=== PATIENT | female | born 1965 | race Caucasian/White ===

== ENCOUNTER 2020-11-17 12:51 | Emergency (ER) | payer OTHER, SELFPAY ==
[2020-11-17 12:52] VITALS: BP 205/93; PULSE 70; RESP 15; TEMP 36.4; O2SAT 98; BMI 30.7
--- NOTE | 2020-11-17 13:10 | EX.ED.VIS.HA ---
ED.HPI.ZARATE History of Present Illness Chief Complaint: Headache Informant: patient Onset/Context/Timing Onset: Days Context: Sudden Timing: Continuous Quality -Headache: Positive for Similar Prior Headaches and Throbbing Current Severity: Mild Maximum Severity: Severe Worsened by: Sound and light Relieved by: Nothing Associated Symptoms/Injury Associated Symptoms: Positive for Nausea, Blurred Vision (Bilateral) and Photophobia; Negative for Fever, Vomiting, Sore Throat, Sinus Pressure, Numbness, Tingling, Preceding Aura, Visual Changes and Visual Loss Injury - ZARATE: Direct Trauma (Problems with headache for the past 8 months after trauma. Patient reports he has had 5 CAT scans since then. Most recent was in October.) Narrative Narrative: Patient is a middle-aged woman who presents with bilateral throbbing headache associated with photophobia and sonophobia. She does report nausea without vomiting. She denies neck stiffness. She denies fever, chills night sweats. She has had problems with headaches since trauma 8 months ago. She had a CAT scan at that time. She had total of 5 CAT scan with the most recent being 1 month ago. She states she has problem with balance because of issues related to her knees. She walks with a cane. She denies broad-based gait. She denies spinning sensation. She has trouble with speech or swallowing. She denies cardiac respiratory symptoms. She denies urologic symptoms. She denies any significant nasal drainage. Prior similar symptoms: Yes Recent Illness/Hospitalization: Yes [facility] Medical History Fibromyalgia History of headache Post concussion syndrome Home Medications bupropion HCl [Wellbutrin XL] 150 mg PO DAILY 11/17/20 [History Last Taken Unknown] duloxetine [Cymbalta] 20 mg PO BID 11/17/20 [History Last Taken Unknown] methadone 10 mg PO BID 11/17/20 [History Last Taken Unknown] metoprolol tartrate 25 mg PO BID 11/17/20 [History Last Taken Unknown] ondansetron [Zofran ODT] 4 mg PO Q6H PRN 11/17/20 [History Last Taken Unknown] sumatriptan succinate [Imitrex] 50 mg PO Q2H PRN 11/17/20 [History Last Taken Unknown] Allergy/AdvReac Type Severity Reaction Status Date / Time furosemide [From Lasix] Allergy NEEDS Verified 11/17/20 13:18 FOLLOW-UP hydrochlorothiazide Allergy NEEDS Verified 11/17/20 12:54 FOLLOW-UP morphine Allergy NEEDS Verified 11/17/20 12:54 FOLLOW-UP Surgical History History of total right knee replacement Social History (Updated 11/17/20 @ 13:[address] Ray Castro MD) household members: family Smoking Status: Never smoker alcohol intake: never substance use type: does not use ROS ROS ED Constitutional Constitutional ED: Denies chills, fever(s), subjective or sweats Eyes Eyes: Reports blurry vision; Denies change in vision or diplopia ENT ENT ED: Denies ear pain, rhinorrhea or sore throat Cardiovascular Cardiovascular: Denies chest pain or palpitations Respiratory/Chest Respiratory/Chest: Denies cough, dyspnea or dyspnea on exertion Gastrointestinal Gastrointestinal: Reports nausea; Denies abdominal pain, diarrhea or vomiting Genitourinary Genitourinary ED: Denies dysuria, hematuria or urinary frequency Musculoskeletal Musculoskeletal: Denies arthralgias or myalgias Integumentary Denies rash Neurologic Neurologic: Reports headache(s); Denies paresthesias or weakness Endocrine Endocrinology: Denies polydipsia or polyuria Hematologic/Lymphatic Hematologic/Lymphatic: Denies easy bruising EXAM Physical Exam Const Vital Signs: 11/17/20 12:52 Temperature 97.5 F L Temperature Source Temporal Pulse Rate 70 Respiratory Rate 15 Blood Pressure 205/93 H Blood Pressure Mean 130 Pulse Ox 98 Oxygen Delivery Method Room Air Positive well nourished General Appearance ED: NAD HEENT Reports normocephalic, TM's clear and moist mucous membranes Negative for temporal artery tenderness or vesicular rash Tympanic Membrane ED: Yes TM's clear Eyes PERRL and EOMs intact bilaterally General Eye ED: Negative for pale conjunctiva or scleral icterus Neck no lymphadenopathy, supple, no meningeal signs and no JVD Resp normal respiratory effort and clear to auscultation bilaterally Cardio regular rate, regular rhythm, S1 normal heart sound, S2 normal heart sound and no murmurs GI non-tender and non-distended Auscultation: normoactive bowel sounds Palpation: soft Back/Spine no CVA tenderness Lumbar Spine / Lower Back: Negative for lumbar spinal tenderness Extremity normal to inspection, full ROM and normal capillary refill Neuro oriented x3 and CN's II-XII intact bilaterally Sensorium / Orientation: awake, alert and other Negative clonus or Babinski sign. Coordination / Balance: [id number] test normal and Romberg test negative Speech: speech normal Gait (Neuro): normal gait Sensory Exam: No sensory level loss detected Motor Exam: strength 5/5 throughout Psych mental status grossly normal Skin Lesions: no lesions Rashes: no rashes Nails: normal MDM MDM MDM Narrative Medical decision making narrative: Patient most likely has traumatic migraines. Will treat with IV Benadryl, Toradol and Reglan. Since her neuro exam is nonfocal imaging was not obtained especially since she has had 5 CAT scans since the initial trauma. Treatment and Re-Evaluation Comments:: Patient was reassessed at 07/13/2004. She is smiling sitting upright. She reports 95+ percent improvement. Plan is to discharge to home with appropriate home-going instructions. Blood pressure upon arrival was elevated and believe this to be secondary to her pain. No work-up was undertaken since she is asymptomatic. Discharge Plan Triage Chief Complaint: Headache ED Provider: Ray Castro Dx/Rx/DC Orders Clinical Impression: Atypical migraine Instructions: ED Headache Unspecified Prescriptions: No Action methadone 10 mg Tablet 10 mg PO BID RF: 0 sumatriptan succinate [Imitrex] 50 mg Tablet 50 mg PO Q2H PRN (Reason: Headache) RF: 0 ondansetron [Zofran ODT] 4 mg Tablet,Disintegrating 4 mg PO Q6H PRN (Reason: Nausea) RF: 0 bupropion HCl [Wellbutrin XL] 150 mg Tablet Extended Release 24 Hr 150 mg PO DAILY RF: 0 metoprolol tartrate 25 mg Tablet 25 mg PO BID RF: 0 duloxetine [Cymbalta] 20 mg Capsule,Delayed Release(Dr/Ec) 20 mg PO BID RF: 0 Referrals: Care Physician,No Primary [NON-STAFF] - Doctor,Your [STAFF PHYSICIAN] - 3-5 Days Activity Restrictions/Additional Instructions: You should follow-up with your doctor to have your blood pressure reassessed in 5 to 7 days. Disposition Disposition: Home, self care
[2020-11-17] MEDS: Ketorolac 15 MG/ML Vial IV (13:29)
[2020-11-17] MEDS: Metoclopramide 10 MG/2 ML Vial IV (13:33)
[2020-11-17] MEDS: DiphenhydrAMINE 50 MG/ML Syringe 25 MG IV (13:33)
[2020-11-17 14:35] VITALS: BP 150/91; PULSE 57; RESP 16
== END 2020-11-17 14:35 | disposition home or self-care (01) ==
PROVIDERS: Emergency Provider Emergency Medicine
DX: G43.009 Migraine without aura, not intractable, without status migrainosus (principal)
CPT/HCPCS: 96374; 96375; 99283; A4216

== ENCOUNTER 2020-11-27 21:41 | Emergency (ER) | payer OTHER, SELFPAY ==
[2020-11-19 09:34] VITALS: BMI 30.7
[2020-11-27 21:43] VITALS: BP 152/93; PULSE 79; RESP 15; TEMP 36.8; O2SAT 98; BMI 31.6
[2020-11-27] MEDS: Ketorolac 15 MG/ML Vial IV (22:26)
[2020-11-27] MEDS: 0.9% Normal Saline 1,000 ML 999 ML IV (22:26)
[2020-11-27] MEDS: DiphenhydrAMINE 50 MG/ML Syringe IV (22:26)
[2020-11-27] MEDS: Metoclopramide 10 MG/2 ML Vial IV (22:26)
[2020-11-27 23:40] VITALS: BP 146/74; PULSE 64; RESP 14; O2SAT 100
--- NOTE | 2020-11-28 03:15 | EDS_ITS ---
HPI History of Present Illness Chief Complaint: Headache Narrative Narrative: Patient reports that she has a headache that began 2 days ago. It is frontal in location. It is gradually gotten worse. Is a sharp pain sent in a worsening of 10 currently. Is worsened by light and noise. She taken Imitrex and Benadryl without relief. She has nausea without vomiting. She denies any recent injury to her head. Patient reports that she has had similar headaches since February of last year when she fell and hit her head. Last episode like this was 4 days ago. She reports that she has had 3 different CTs of her head and 2 MRIs. [facility] Medical History Fibromyalgia History of headache Post concussion syndrome Home Medications bupropion HCl [Wellbutrin XL] 150 mg PO DAILY 11/17/20 [History Last Taken Unknown] duloxetine [Cymbalta] 20 mg PO BID 11/17/20 [History Last Taken Unknown] methadone 10 mg PO BID 11/17/20 [History Last Taken Unknown] metoprolol tartrate 25 mg PO BID 11/17/20 [History Last Taken Unknown] ondansetron [Zofran ODT] 4 mg PO Q6H PRN 11/17/20 [History Last Taken Unknown] sumatriptan succinate [Imitrex] 50 mg PO Q2H PRN 11/17/20 [History Last Taken Unknown] metoclopramide HCl [Reglan] 10 mg PO Q6H PRN #10 tab 11/27/20 [Rx Last Taken Unknown] Allergy/AdvReac Type Severity Reaction Status Date / Time furosemide [From Lasix] Allergy NEEDS Verified 11/27/20 21:46 FOLLOW-UP hydrochlorothiazide Allergy NEEDS Verified 11/27/20 21:46 FOLLOW-UP morphine Allergy NEEDS Verified 11/27/20 21:46 FOLLOW-UP Surgical History History of total right knee replacement Social History household members: family Smoking Status: Never smoker alcohol intake: never substance use type: does not use ROS ROS ED Constitutional Constitutional ED: Denies chills, fever(s) or sweats Eyes Eyes: Denies change in vision ENT ENT ED: Denies sore throat Cardiovascular Cardiovascular: Denies chest pain Respiratory/Chest Respiratory/Chest: Denies cough, dyspnea or dyspnea on exertion Gastrointestinal Gastrointestinal: Denies abdominal pain, diarrhea, melena, nausea or vomiting Genitourinary Genitourinary ED: Denies dysuria or urinary frequency Musculoskeletal Musculoskeletal: Denies myalgias Integumentary Denies rash Neurologic Neurologic: Reports headache(s); Denies paresthesias or weakness EXAM Physical Exam Const Vital Signs: 11/27/20 21:43 11/27/20 23:40 Temperature 98.2 F Temperature Source Temporal Pulse Rate 79 64 Respiratory Rate 15 14 Blood Pressure 152/93 H 146/74 H Blood Pressure Mean 112 Pulse Ox 98 100 Oxygen Delivery Method Room Air Positive well nourished and well developed General Appearance ED: well developed HEENT Reports normocephalic and head/scalp atraumatic Eyes PERRL Neck no lymphadenopathy, supple and no JVD General: Negative for tenderness Resp normal respiratory effort and clear to auscultation bilaterally Cardio regular rate, regular rhythm and no murmurs GI normal to inspection, nondistended, normoactive bowel sounds and non-tender GI Narrative: No guarding, rebound, or peritoneal signs. Palpation: soft Back/Spine Back/Spine Narrative: Nontender. Extremity General Extremety ED: Negative for edema or tenderness General Extremity: Negative for edema Neuro oriented x3, CN's II-XII intact bilaterally and no sensory deficits noted Sensorium / Orientation: alert Motor Exam: strength 5/5 throughout Psych mental status grossly normal Skin no rashes or lesions noted [facility] Treatment and Re-Evaluation Comments:: Emergency department course: Patient had an IV placed. She was given Toradol, Benadryl, and Reglan IV. She reports that her headache is greatly improved. No Treatment plan: Patient will be discharged prescription for Reglan to use for her headaches as needed. Follow-up the [facility] in 1 to 2 days if not improving. Return to the emergency department for any worsening symptoms. Disposition: To home in improved and stable condition. Discharge Plan Triage Chief Complaint: Headache ED Provider: Pancho Harris Dx/Rx/DC Orders Instructions: ED Headache Unspecified Prescriptions: New metoclopramide HCl [Reglan] 10 mg tablet 10 mg PO Q6H PRN (Reason: nausea and vomiting) Qty: 10 RF: 0 No Action methadone 10 mg Tablet 10 mg PO BID RF: 0 sumatriptan succinate [Imitrex] 50 mg Tablet 50 mg PO Q2H PRN (Reason: Headache) RF: 0 ondansetron [Zofran ODT] 4 mg Tablet,Disintegrating 4 mg PO Q6H PRN (Reason: Nausea) RF: 0 bupropion HCl [Wellbutrin XL] 150 mg Tablet Extended Release 24 Hr 150 mg PO DAILY RF: 0 metoprolol tartrate 25 mg Tablet 25 mg PO BID RF: 0 duloxetine [Cymbalta] 20 mg Capsule,Delayed Release(Dr/Ec) 20 mg PO BID RF: 0 Primary Care Provider: Care Physician,No Primary Referrals: Jennifer Armenta [NON-STAFF] - 1-2 Days if not improving Care Physician,No Primary [Primary Care Provider] - Disposition Disposition: Home, self care Discharge Date/Time: 11/27/20 23:40
== END 2020-11-27 23:40 | disposition home or self-care (01) ==
PROVIDERS: Emergency Provider Emergency Medicine
DX: R51.9 Headache, unspecified (principal); M79.7 Fibromyalgia
CPT/HCPCS: 96361; 96374; 96375; 99283; J7030

== ENCOUNTER 2020-12-03 12:22 | Emergency (ER) | payer OTHER, SELFPAY ==
[2020-12-03 12:23] VITALS: BP 146/76; PULSE 71; RESP 15; TEMP 36.4; O2SAT 97; BMI 32.4
--- NOTE | 2020-12-03 13:12 | EDS_ITS ---
HPI History of Present Illness Chief Complaint: Headache Narrative Narrative: 55-year-old female presenting with headache. She states she has light and sound sensitivity. This is a chronic problem with a flareup. Patient states that this started when she lived in [place] and had an injury to her head. She was seeing a neurologist in [place] at that time. Patient states that she has been lost to follow-up because her insurance lapsed. She has insurance starting next week and has an appointment with a primary care provider. She states she just wants a shot of Toradol which will work for her and she wants to go home. [facility] Medical History Atypical migraine Fibromyalgia History of headache Osteoarthritis Post concussion syndrome Home Medications bupropion HCl [Wellbutrin XL] 150 mg PO DAILY 11/17/20 [History Last Taken Unknown] methadone 10 mg PO BID 11/17/20 [History Last Taken Unknown] metoprolol tartrate 25 mg PO BID 11/17/20 [History Last Taken Unknown] sumatriptan succinate [Imitrex] 50 mg PO Q2H PRN 11/17/20 [History Last Taken Unknown] metoclopramide HCl [Reglan] 10 mg PO Q6H PRN #10 tab 11/27/20 [Rx Last Taken Unknown] duloxetine 30 mg capsule,delayed release 30 mg PO BID 12/03/20 [History Last Taken Unknown] naproxen [Naprosyn] 500 mg PO BID #30 tab 12/03/20 [Rx Last Taken Unknown] Allergy/AdvReac Type Severity Reaction Status Date / Time furosemide [From Lasix] Allergy NEEDS Verified 12/03/20 12:24 FOLLOW-UP hydrochlorothiazide Allergy NEEDS Verified 12/03/20 12:24 FOLLOW-UP morphine Allergy NEEDS Verified 12/03/20 12:24 FOLLOW-UP Surgical History History of arthroscopy of right shoulder History of breast augmentation History of total right knee replacement Social History household members: family Smoking Status: Never smoker alcohol intake: never substance use type: does not use ROS ROS ED Constitutional Constitutional ED: Denies chills, fever(s) or sweats Eyes Eyes: Denies blurry vision or change in vision ENT ENT ED: Denies ear pain, rhinorrhea or sore throat Cardiovascular Cardiovascular: Denies chest pain, palpitations or racing heartbeat Respiratory/Chest Respiratory/Chest: Denies cough, dyspnea or sputum Gastrointestinal Gastrointestinal: Denies abdominal pain, constipation, diarrhea or vomiting Genitourinary Genitourinary ED: Denies dysuria, hematuria or urinary frequency Musculoskeletal Musculoskeletal: Denies arthralgias, myalgias or neck pain Integumentary Denies abscess, Abrasions or rash Neurologic Neurologic: Reports headache(s) and other Details: Light and sound sensitivity ; Denies paresthesias or weakness Psychiatric Psychiatric: Denies anxiety, depression, suicidal ideation or suicidal thoughts Endocrine Endocrinology: Denies polydipsia or polyuria EXAM Physical Exam Const Vital Signs: 12/03/20 12:23 Temperature 97.6 F L Temperature Source Temporal Pulse Rate 71 Respiratory Rate 15 Blood Pressure 146/76 H Blood Pressure Mean 99 Pulse Ox 97 Oxygen Delivery Method Room Air General Appearance ED: Negative for pallor HEENT Reports normocephalic, head/scalp atraumatic and moist mucous membranes trauma Eyes PERRL and EOMs intact bilaterally Chest Wall inspection of chest normal and palpation of chest normal Resp normal respiratory effort and clear to auscultation bilaterally Auscultation: Negative for rales, rhonchi or wheezes Cardio regular rate and regular rhythm Narrative: Deferred Back/Spine no CVA tenderness Cervical Spine: Negative for cervical spine tenderness Extremity normal to inspection General Extremety ED: Negative for tenderness Neuro oriented x3 and CN's II-XII intact bilaterally Sensorium / Orientation: alert Motor Exam: strength 5/5 throughout Psych mental status grossly normal Attitude: No agitated Skin no rashes or lesions noted and no wounds General Skin Exam: Negative for jaundice or pallor MDM MDM MDM Narrative Medical decision making narrative: 55-year-old female presenting with headache. She states she only wants a shot of Toradol and then be discharged home. Other than photophobia and phonophobia she has no other symptoms. He has no focal neurologic deficits on exam. She denies neck pain. She has follow-up with her new primary care provider next week. Patient was given Toradol IM. She was discharged home in stable condition. Impression: 1. Headache Discharge Plan Triage Chief Complaint: Headache ED Provider: Rayray Rojo Dx/Rx/DC Orders Instructions: ED Headache Unspecified Prescriptions: New naproxen [Naprosyn] 500 mg tablet 500 mg PO BID Qty: 30 RF: 0 No Action duloxetine [Cymbalta] 30 mg capsule,delayed release(DR/EC) 30 mg PO BID RF: 0 methadone 10 mg Tablet 10 mg PO BID RF: 0 sumatriptan succinate [Imitrex] 50 mg Tablet 50 mg PO Q2H PRN (Reason: Headache) RF: 0 bupropion HCl [Wellbutrin XL] 150 mg Tablet Extended Release 24 Hr 150 mg PO DAILY RF: 0 metoprolol tartrate 25 mg Tablet 25 mg PO BID RF: 0 metoclopramide HCl [Reglan] 10 mg tablet 10 mg PO Q6H PRN (Reason: nausea and vomiting) Qty: 10 RF: 0 Primary Care Provider: Ev Vasquez Referrals: Ev Vasquez MD [Primary Care Provider] - Disposition Disposition: Home, self care
[2020-12-03] MEDS: Ketorolac 15 MG/ML Vial IM (13:32)
== END 2020-12-03 14:03 | disposition home or self-care (01) ==
PROVIDERS: Emergency Provider Student in an Organized Health Care Education/Training Program; PCP Internal Medicine
DX: R51.9 Headache, unspecified (principal); M79.7 Fibromyalgia; M19.90 Unspecified osteoarthritis, unspecified site
CPT/HCPCS: 96372; 99282

== ENCOUNTER → 2020-12-14 10:02 | Outpatient (CLI) | payer OTHER, SELFPAY ==
[2020-12-08 10:55] VITALS: BMI 32.4
[2020-12-14 12:10] LABS: Absolute Lymphocyte Count 0.98 X10^3/uL (0.83-4.51); Absolute Neutrophil Count 3.2 X10^3/uL (2.0-7.7); Basophil# 0.03 X10^3/uL; Basophil% 0.6 % (0-1); Eosinophil# 0.28 X10^3/uL; Eosinophils% 5.6 % (0-5); Hematocrit 36.9 % (37-47); Hemoglobin 11.6 g/dL (12.0-15.0); Lymphocyte # 0.98 X10^3/ul (0.83-4.51); Lymphocyte % 19.6 % (19-41); Mean Corp Hgb Conc 31.4 g/dL (32-36); Mean Corpuscular Hgb 27.3 pg (27.0-32.0); Mean Corpuscular Volume 86.8 fL (81-99); Mean Platelet Vol. 10.3 fl (6.2-12.0); Monocyte# 0.49 X10^3/uL; Monocyte% 9.8 % (0-10); NRBC Flagged by Analyzer 0 % (0-5); Neutrophil % 64.2 % (47-70); Platelet Count 309 K/mm3 (150-450); RBC Distribution Width SD 40.9 fl (35.1-43.9); Red Blood Count 4.25 M/mm3 (4.2-5.4)
[2020-12-14 12:21] LABS: Vitamin D,25 Hydroxy 22.2 ng/mL
[2020-12-14 12:30] LABS: ALB/GLOB Ratio 1.1 RATIO (0.9-2.4); AST(SGOT) 24 U/L (15-37); Alanine Aminotransfer ALT/SGPT 29 U/L (13-56); Albumin, Serum 3.9 g/dL (3.2-5.0); Alkaline Phosphatase 66 U/L (45-117); Anion Gap 7 (5-15); BUN 13 mg/dL (7-18); BUN/Creat Ratio 18.8 RATIO (10-20); Calcium,Total 9.1 mg/dL (8.5-10.1); Chloride 102 mmol/L (98-107); Cholesterol 234 mg/dL (200); Creatinine, Serum 0.69 mg/dL (0.55-1.02); EST Glomerular Filtration Rate 93 mL/min (>60); Est Glom Filt Rate - Afr Amer 112 mL/min (>60); Globulin 3.5 g/dL (2.2-4.2); Glucose 96 mg/dL (74-106); High Density Lipoprotein 62 mg/dL; Potassium 4.1 mmol/L (3.5-5.1); Protein, Total 7.4 g/dL (6.4-8.2); Sodium Level 140 mmol/L (136-145); Thyroid Stim Hormone (TSH) 1.22 uIU/mL (0.358-3.74); Triglycerides 149 mg/dL; Very Low Density Lipoprotein 30 mg/dL (5-40)
== END ==
PROVIDERS: PCP Internal Medicine; Visit Provider Internal Medicine
DX: E55.9 Vitamin D deficiency, unspecified (principal); G43.009 Migraine without aura, not intractable, without status migrainosus; M19.90 Unspecified osteoarthritis, unspecified site; Z13.220 Encounter for screening for lipoid disorders; Z98.82 Breast implant status; Z98.890 Other specified postprocedural states
CPT/HCPCS: 36415; 80053; 80061; 82306; 84443; 85025

== ENCOUNTER → 2021-01-21 14:30 | Outpatient (CLI) | payer OTHER, SELFPAY ==
[2020-12-08 10:55] VITALS: BMI 32.4
--- NOTE | 2021-01-21 14:34 | RAD_ITS ---
INDICATION: LUMBAR PAIN EXAMINATION/TECHNIQUE: X-RAY - XR Spine Lumbar Min 4 Views COMPARISON: None. FINDINGS: VERTEBRAE: Preserved vertebral body height. No fracture. 6 mm anterolisthesis L4 on L5. 2 mm anterolisthesis L3 on L4. Preservation of the normal lumbar lordosis. Moderate multilevel facet arthropathy. DISCS: Moderate multilevel degenerative disease and spondylosis. INCLUDED ABDOMEN: Vascular calcifications. Moderate amount retained stool in the colon. RAD/L/S Spine Min 4 Views IMPRESSION: Grade 1 anterolisthesis L4 on L5 and L3 on L4. Moderate multilevel degenerative disc disease and spondylosis. Electronically Signed: Angel Hernadez MD at 23:51 EDT Tel , Service support ,
== END ==
PROVIDERS: PCP Internal Medicine; Referring Provider Nurse Practitioner Family; Visit Provider Nurse Practitioner Family
DX: M54.5 Low back pain (principal)
CPT/HCPCS: 72110

== ENCOUNTER 2021-04-21 05:43 | Day surgery (SDC) | payer OTHER, SELFPAY ==
[2020-12-08 10:55] VITALS: BMI 32.4
[2021-04-21] VITALS (7 sets, daily range): BP systolic 104–146; BP diastolic 73–99; PULSE 58–73; RESP 16–18; TEMP 36–36.2; O2SAT 98–100; BMI 32.7
[2021-04-21] MEDS: Lactated Ringers 1,000 ML 100 ML IV (06:17)
--- NOTE | 2021-04-21 06:43 | HP.PCM_ITS ---
HPI - General HPI Narrative ROSALINDA MARROQUIN, is a 56 F who presents for screening colonoscopy. Sounds like about 5 years ago patient attempted a colonoscopy as well but had poor prep thus was unable to be completed. Patient denies any chronic abdominal pain nausea or vomiting or reflux. Patient bowel movements daily denies any blood. Patient denies any family history of colon cancer. [facility] Medical History (Updated 04/21/21 @ 06:[address] Nola Curry MD) Ambulates with cane Anemia Anxiety Arthritis Atypical migraine Back pain Chronic back pain CPAP (continuous positive airway pressure) dependence Dementia Depression Fibromyalgia History of headache History of irregular heartbeat History of steroid therapy Hypertension Injury of back Injury of head and neck Migraine headache Osteoarthritis Post concussion syndrome Post-menopausal Sleep apnea Traumatic brain injury Wears dentures Wears glasses Home Medications bupropion HCl 150 mg 24 hr tablet, extended release 150 mg PO DAILY #90 tab 12/08/20 [Rx Last Taken Unknown] duloxetine 30 mg capsule,delayed release 30 mg PO BID #180 cap 12/08/20 [Rx Last Taken Unknown] metoprolol tartrate 25 mg tablet 25 mg PO BID #180 tab 12/08/20 [Rx Last Taken 04/21/21 05:40] sumatriptan succinate 50 mg tablet 50 mg PO Q2H PRN #30 tab 12/08/20 [Rx Last Taken Unknown] celecoxib 200 mg capsule 200 mg PO DAILY 03/31/21 [History Last Taken Unknown] methadone 5 mg tablet 5 mg PO BID tab 03/31/21 [History Last Taken Unknown] magnesium 200 mg PO DAILY 04/19/21 [History Last Taken Unknown] [id number] [Centrum Silver] 1 tab PO DAILY 04/19/21 [History Last Taken Unknown] omega-3 fatty acids [Fish Oil] 1,000 mg PO DAILY 04/19/21 [History Last Taken Unknown] potassium 99 mg PO DAILY 04/19/21 [History Last Taken Unknown] vitamin [id number] acid 1 tab PO DAILY 04/19/21 [History Last Taken Unknown] Allergy/AdvReac Type Severity Reaction Status Date / Time furosemide [From Lasix] Allergy Other Verified 04/21/21 06:01 hydrochlorothiazide Allergy Other Verified 04/21/21 06:01 morphine Allergy Other Verified 04/21/21 06:01 topiramate [From Topamax] Allergy Other Verified 04/21/21 06:01 Surgical History History of arthroscopy of right shoulder History of breast augmentation History of total right knee replacement Social History household members: family Smoking Status: Never smoker alcohol intake: never substance use type: does not use Past Medical/Surgical History Planned Operation Planned Operative Procedure/s: COLONOSCOPY Previous Hospitalizations/Surgeries HX Hospitalizations: No Any Problems With Anesthesia: No You/Your Family Experience Fever (Hyperthermia) With Anes: No Cholinesterase deficiency: No Cardiovascular Hx Hypertension: Yes (CONTROLLED ON MED) Respiratory Hx Sleep Apnea: Yes CPAP: Yes (NOT USING) BIPAP: No Hx Respiratory Tract Infection/Cold (presently): No Result (for STOP score): Positive Smoking Status: Never smoker Neurological Does patient have nerve stimulator: No Reproduction : No Miscellaneous Recent Exposure to Contagious Disease: No Allergies furosemide [From Lasix] Allergy (Verified 04/21/21 06:01) Other HEART STOPPED hydrochlorothiazide Allergy (Verified 04/21/21 06:01) Other HEART STOPPED morphine Allergy (Verified 04/21/21 06:01) Other SEVERE ZARATE topiramate [From Topamax] Allergy (Verified 04/21/21 06:01) Other CAUSED PETI MAL SEIZURES Discharge Is Pt Admitted From a Correction, or a [facility]: No After D/C, Where Do you Plan to Go: Return Home Vital Signs Vital Signs Vital Signs: 04/21/21 06:04 04/21/21 06:05 Temperature 97.2 F L Temperature Source Temporal Pulse Rate 65 Respiratory Rate 18 Respiratory Pattern Normal Blood Pressure 146/79 H Blood Pressure Mean 101 Blood Pressure Source Monitor Blood Pressure Position Semi-Fowlers Blood Pressure Location Right Arm Pulse Ox 98 Oxygen Delivery Method Room Air Weight Weight: 190 lb 11.198 oz Body Mass Index (BMI) 32.7 Physical Exam Const alert, oriented x3 and no apparent distress HEENT normocephalic and head/scalp atraumatic Resp normal respiratory effort Cardio regular rate GI soft to palpation and non-tender; Negative for non-distended Palpation: Negative for guarding Extremity no clubbing, cyanosis or edema Neuro CN's II-XII intact bilaterally Psych mental status grossly normal Assessment & Plan Assessment/Plan (1) Screening for colon cancer: Procedure Criteria Type of Procedure Procedure Type: Elective Elective Risks - COVID COVID Risk Discussion: The surgeon/proceduralist and patient have discussed in detail the risk of exposure to and/or potential harm posed by the COVID-19 virus with having a surgery/procedure at this time versus the risk of delaying the surgery/procedure. It is not possible to know either the risk of delaying the surgery or procedure or chance of getting an infection with perfect accuracy, but a joint decision was made between the patient and the surgeon/proceduralist to proceed at this time with the scheduled surgery/procedure as indicated on the consent form. Surgery Risks - Colonoscopy Risks Include but are not Limited To: Risks include but are not limited to: Bleeding, perforation requiring further surgery, inability to complete colonoscopy requiring barium enema. Patient had no further questions this time.
--- NOTE | 2021-04-21 07:00 | COLBX_PTH ---
PATIENT: ROSALINDA MARROQUIN LOC: EN U#:[id number] AGE/SX: 56/F ROOM: RE04/21/[address]: Dr. Nola Curry MD : [id number] BED: DIS: 04/21/2021 SPEC #: [id number] RECD: 04/21/21 11:57 STATUS: RAMSES REQ #: [id number] ARRON: 04/21/21 07:[address]: Nola Curry DEPT: SURGICAL PATHOLOGY RECD BY: Matt Wood ENTERED: 04/21/21 13:30 SP TYPE: COLON BX OTHR DR: Dr. Ev Vasquez MD Tissues: COLON BIOPSY Procedures: Surgery Specimen Level IV HEADER OPERATION: Colonoscopy ? open access (MAC) PRE-OP DIAGNOSIS: Screening for colon cancer TISSUE SUBMITTED: Hepatic flexure polyp biopsy MICROSCOPIC DIAGNOSIS Hepatic flexure polyp, biopsy: Tubular adenoma. SJ:lucas 04/22/2021 MICROSCOPIC DESCRIPTION Slides are reviewed. GROSS DESCRIPTION Received in fixative is one container labeled with the patient's name and designated hepatic flexure polyp. The specimen consists of two irregular fragments of light pereira soft tissue that in aggregate measure 0.4 x 0.2 x 0.1 cm. The specimen is totally submitted in one cassette. / SJ:lucas 04/21/21 TC:1 CPT: 57243
--- NOTE | 2021-04-21 07:36 | OP.COLON_ITS ---
Patient Name: Sharon Vargas Procedure Date: 04/21/2021 6:50 AM Date of : 1965 Age: 56 Procedure: Colonoscopy Indications: Screening for colorectal malignant neoplasm Providers: Nola Curry MD Referring MD: Nola Curry MD Medicines: Monitored Anesthesia Care Patient Profile: This is a 56 year old female. Last Colonoscopy: none. The patient's first colonoscopy is today--previous was incomplete due to poor prep. Complications: No immediate complications. Procedure: Pre-Anesthesia Assessment: - Prior to the procedure, a History and Physical was performed, and patient medications and allergies were reviewed. The patient's tolerance of previous anesthesia was also reviewed. The risks and benefits of the procedure and the sedation options and risks were discussed with the patient. All questions were answered, and informed consent was obtained. Prior Anticoagulants: The patient has taken no previous anticoagulant or antiplatelet agents. ASA Grade Assessment: Per anesthesia. After reviewing the risks and benefits, the patient was deemed in satisfactory condition to undergo the procedure. After I obtained informed consent, the scope was passed under direct vision. Throughout the procedure, the patient's blood pressure, pulse, and oxygen saturations were monitored continuously. The pediatric colonoscope was introduced through the anus and advanced to the cecum, identified by the appendiceal orifice, ileocecal valve and palpation. The colonoscopy was performed without difficulty. The patient tolerated the procedure well. The quality of the bowel preparation was adequate to identify polyps. Scope In: 7:03:14 AM Scope Withdrawal Time 0 hours 12 minutes 37 seconds Scope Out: 7:29:56 AM Total Procedure Duration Time 0 hours 26 minutes 42 seconds Findings: The perianal and digital rectal examinations were normal. A less than 5 mm polyp was found in the hepatic flexure. The polyp was sessile. The polyp was removed with a cold biopsy forceps. Resection and retrieval were complete. The exam was otherwise without abnormality on direct and retroflexion views. Impression: - One less than 5 mm polyp at the hepatic flexure, removed with a cold biopsy forceps. Resected and retrieved. - The examination was otherwise normal on direct and retroflexion views. Recommendation: - Discharge patient to home. - Resume previous diet. - Continue present medications. - Await pathology results. - Repeat colonoscopy in 5 years for surveillance based on pathology results. Procedure Code(s): --- Professional --- 40685, PT, Colonoscopy, flexible; with biopsy, single or multiple Diagnosis Code(s): --- Professional --- Z12.11, Encounter for screening for malignant neoplasm of colon D12.3, Benign neoplasm of transverse colon (hepatic flexure or splenic flexure) CPT copyright 2017 [employer]. All rights reserved. The codes documented in this report are preliminary and upon braiding machine tender review may be revised to meet current compliance requirements. MD Nola Gibson MD 04/21/2021 7:36:26 AM This report has been signed electronically. Number of Addenda: 0 Note Initiated On: 04/21/2021 6:50 AM
--- NOTE | 2021-04-21 07:37 | OP.CCLET_ITS ---
04/21/2021 Ev Vasquez [facility] [address] [place] [address] Re : Colonoscopy procedure for Sharon Vargas Dear Dr. Vasquez This procedure was performed on Wednesday, April 21, 2021. My impressions and recommendations are as follows: Impressions : - One less than 5 mm polyp at the hepatic flexure, removed with a cold biopsy forceps. Resected and retrieved. - The examination was otherwise normal on direct and retroflexion views. Recommendations : - Discharge patient to home. - Resume previous diet. - Continue present medications. - Await pathology results. - Repeat colonoscopy in 5 years for surveillance based on pathology results. My findings are described in the full procedure note, which is enclosed. If I can be of further assistance, please feel free to contact me at Doctor phone number(s): , Work: . Sincerely, MD Nola Gibson MD 04/21/2021 7:36:26 AM This report has been signed electronically.
== END 2021-04-21 08:39 | disposition home or self-care (01) ==
LOC: EN 05:43 → AC 05:43
PROVIDERS: PCP Internal Medicine; Referring Provider Surgery; Visit Provider Surgery
PROC: 0DJD8ZZ Inspection of Lower Intestinal Tract, Via Natural or Artificial Opening Endoscopic (ICD-10-PCS; CPT 45378; principal; 2021-04-21 06:55)
DX: Z12.11 Encounter for screening for malignant neoplasm of colon (principal); D12.3 Benign neoplasm of transverse colon; F41.9 Anxiety disorder, unspecified; M19.90 Unspecified osteoarthritis, unspecified site; F03.90 Unspecified dementia, unspecified severity, without behavioral disturbance, psychotic disturbance, mood disturbance, and anxiety; F32.A Depression, unspecified; M79.7 Fibromyalgia; I10 Essential (primary) hypertension; G47.30 Sleep apnea, unspecified; Z79.899 Other long term (current) drug therapy
CPT/HCPCS: 45380; 87426; 88305; C9803; J7120; J2405

== ENCOUNTER → 2021-05-19 15:34 | Outpatient (CLI) | payer OTHER, SELFPAY ==
[2021-05-19 17:58] LABS: Absolute Lymphocyte Count 1.08 X10^3/uL (0.83-4.51); Absolute Neutrophil Count 3.5 X10^3/uL (2.0-7.7); Basophil# 0.02 X10^3/uL; Basophil% 0.4 % (0-1); Eosinophil# 0.11 X10^3/uL; Eosinophils% 2.2 % (0-5); Hematocrit 36.8 % (37-47); Lymphocyte # 1.08 X10^3/ul (0.83-4.51); Lymphocyte % 21.3 % (19-41); Mean Corp Hgb Conc 32.6 g/dL (32-36); Mean Platelet Vol. 10.5 fl (6.2-12.0); Monocyte# 0.39 X10^3/uL; Monocyte% 7.7 % (0-10); NRBC Flagged by Analyzer 0 % (0-5); Neutrophil # 3.46 X10^3/uL (2.7-7.7); Neutrophil % 68.2 % (47-70); Platelet Count 248 K/mm3 (150-450); RBC Distribution Width CV 13.3 % (11.6-14.6); RBC Distribution Width SD 41.1 fl (35.1-43.9); Red Blood Count 4.28 M/mm3 (4.2-5.4); White Blood Count 5.1 K/mm3 (4.4-11.0)
[2021-05-19 18:16] LABS: Anion Gap 5 (5-15); BUN 16 mg/dL (7-18); BUN/Creat Ratio 23.8 RATIO (10-20); Calcium,Total 9.4 mg/dL (8.5-10.1); Chloride 107 mmol/L (98-107); Creatinine, Serum 0.67 mg/dL (0.55-1.02); EST Glomerular Filtration Rate 96 mL/min (>60); Est Glom Filt Rate - Afr Amer 116 mL/min (>60); Glucose 109 mg/dL (74-106); Potassium 3.9 mmol/L (3.5-5.1); Sodium Level 139 mmol/L (136-145)
== END ==
PROVIDERS: PCP Internal Medicine; Referring Provider Internal Medicine; Visit Provider Internal Medicine
DX: Z01.818 Encounter for other preprocedural examination (principal); M19.90 Unspecified osteoarthritis, unspecified site
CPT/HCPCS: 36415; 80048; 85025

== ENCOUNTER → 2021-05-20 13:48 | Outpatient (CLI) | payer OTHER, SELFPAY ==
--- NOTE | 2021-05-20 13:55 | CT_ITS ---
STUDY: CT SCAN OF LOWER EXTREMITY LEFT REASON FOR EXAM: Female, 56 years old. Left knee, templating for TKA.[facility] protocol. RADIATION DOSAGE (If Supplied By Facility): CTDIvol = ( 18.76 ) mGy, DLP = ( 1237.75 ) mGycm. Individualized dose optimization techniques were used for this CT.? TECHNIQUE: Multiple axial tomographic images of the left hip joint, left knee joint and ankle joint were obtained. Coronal and sagittal reconstruction was obtained as well. COMPARISON: None. FINDINGS: Imaging of the left hip joint was obtained. No significant abnormality is seen. Imaging of the left knee joint was obtained. Marked degree of joint space narrowing with degenerative spur formation along the medial compartment of the knee joint. Moderate degree of joint space narrowing with degenerative spur formation of the patella femoral joint. There is a well-corticated 7 mm x 7 mm bony density in the posterior aspect of the knee joint suggestive of a possible loose body. Imaging of the ankle joint was obtained. No abnormality is seen. CT/Extremity Lower without Contra IMPRESSION: Degenerative changes of the knee joint as described with a small loose body within the joint space. Electronically Signed: Hi Jang MD at 15:18 EST , Service support ,
== END ==
PROVIDERS: PCP Internal Medicine; Referring Provider Orthopaedic Surgery; Visit Provider Orthopaedic Surgery
DX: M17.12 Unilateral primary osteoarthritis, left knee (principal)
CPT/HCPCS: 73700

== ENCOUNTER 2021-06-08 09:57 | Inpatient (IN) | payer OTHER, SELFPAY ==
--- NOTE | 2021-05-20 13:54 | EKG12_ITS ---
Test Reason : PREOP Blood Pressure : / mmHG Vent. Rate : 056 BPM Atrial Rate : 056 BPM P-R Int : 184 ms QRS Dur : 094 ms QT Int : 436 ms P-R-T Axes : 055 024 043 degrees QTc Int : 420 ms Sinus bradycardia Otherwise normal ECG Confirmed by PER DYKES, ROZINA ([id number]), magazine editor LILIANA GRAFF ([id number]) on 05/21/2021 6:52:41 AM Referred By: Edwar Huffman Confirmed By:ROZINA ALBARADO MD
[2021-06-01 11:37] LABS: Prothrombin Time (Protime)PT. 12.5 SECONDS (11.7-14.9)
[2021-06-01 11:38] LABS: Partial Thromboplast Time 33.8 Seconds (24.1-36.2)
[2021-06-01 11:43] LABS: Magnesium 2.2 mg/dL (1.6-2.6)
[2021-06-02 13:43] LABS: Fructosamine 246 umol/L (0-285)
[2021-06-08] VITALS (17 sets, daily range): BP systolic 90–148; BP diastolic 58–103; PULSE 57–92; RESP 16–18; TEMP 36.1–36.8; O2SAT 94–100; BMI 33.7
--- NOTE | 2021-06-08 | KNEE_PTH ---
PATIENT: ROSALINDA MARROQUIN LOC: MS3 U#:[id number] AGE/SX: 56/F ROOM: [facility] RE06/08/[address]: Dr. Edwar Huffman DO : 1965 BED: 1 DIS: 06/09/2021 SPEC #: [id number] RECD: 06/08/21 12:38 STATUS: RAMSES BRAN #: [id number] ARRON: 06/08/21 00:[address]: Edwar Huffman DEPT: SURGICAL PATHOLOGY RECD BY: Yahir Godwin ENTERED: 06/08/21 12:38 SP TYPE: TOTAL KNEE OTHR DR: Dr. Ev Vasquez MD Tissues: Knee, NOS Procedures: Decalcification bone/plaque Surgery Specimen Level IV HEADER OPERATION: ERAS, total knee replacement robotic arm assist PRE-OP DIAGNOSIS: Left knee pain TISSUE SUBMITTED: Left knee bone and soft tissue MICROSCOPIC DIAGNOSIS Bone and soft tissue, left knee, total knee replacement/resection: Pieces of bone with degenerative osteoarthritic changes. Fibroadipose tissue, fibroconnective tissue and reactive synovial tissue. ZOLTAN:lucas 06/10/2021 MICROSCOPIC DESCRIPTION Slides are reviewed. GROSS DESCRIPTION Received is one container designated bone and soft tissue left knee. The specimen consists of multiple fragments of pereira-yellow bone measuring in aggregate 9 x 10 x 3.5 cm. Also in the specimen container are multiple fragments of yellow-white soft tissue and cartilaginous tissue measuring in aggregate 5 x 1 x 1 cm. A number of bony fragments contain articular surfaces consistent with tibial plateau and femoral condyle and displaying prominent osteophyte formation, eburnation and bone erosion. Organic Chemistry Professor sections are submitted in two cassettes as follows: 1 - soft tissue, 2 - bone after decalcification. / ZOLTAN:lucas 06/08/2021 :5 CPT: 45303, 79688
[2021-06-08] MEDS: Acetaminophen 500 MG Tablet 1000 MG PO ×3 (06:08→22:18)
[2021-06-08] MEDS: Celecoxib 200 MG Capsule 400 MG PO (06:08)
[2021-06-08] MEDS: Gabapentin 600 MG Tablet PO (06:09)
[2021-06-08] MEDS: Scopolamine 1mg/72hr Patch 1 PATCH TD (06:09)
[2021-06-08] MEDS: Lactated Ringers 1,000 ML 100 ML IV (06:17)
[2021-06-08 06:35] LABS: Bedside Glucose 105 mg/dL (70-110)
[2021-06-08] MEDS: Lactated Ringers 1,000 ML 125 ML IV ×2 (07:00→13:51)
--- NOTE | 2021-06-08 07:29 | HP.PCM_ITS ---
History and Physical Date of Admission: 06/08/21 Date of Service: 05/03/21 MR#:[id number]:[id number]: ROSALINDA MARROQUINGISSELLE #:[id number]:[id number] Provider:Dr. Edwar Huffman, DOAge/Sex: 56/F [facility]:Signed Intake Vital Signs 04/13/21 11:24 05/03/21 13:43 Height 5 ft 5 in 5 ft 5 in Weight: 199 lb BMI 33.1 Intake Visit Reasons: Left Knee Allergies furosemide [From Lasix] Allergy (Verified 04/21/21 06:01) Other hydrochlorothiazide Allergy (Verified 04/21/21 06:01) Other morphine Allergy (Verified 04/21/21 06:01) Other topiramate [From Topamax] Allergy (Verified 04/21/21 06:01) Other Medications bupropion HCl 150 mg 24 hr tablet, extended release 150 mg PO DAILY #90 tab 12/08/20 [Rx Confirmed 05/03/21] duloxetine 30 mg capsule,delayed release 30 mg PO BID #180 cap 12/08/20 [Rx Confirmed 05/03/21] metoprolol tartrate 25 mg tablet 25 mg PO BID #180 tab 12/08/20 [Rx Confirmed ] celecoxib 200 mg capsule 200 mg PO DAILY 03/31/21 [History Confirmed 05/03/21] methadone 5 mg tablet 5 mg PO BID tab 03/31/21 [History Confirmed 05/03/21] magnesium 200 mg PO DAILY 04/19/21 [History Confirmed 05/03/21] tpeeztffgmvy-zlflshcr-vqnlel [Centrum Silver] 1 tab PO DAILY 04/19/21 [History Confirmed 05/03/21] omega-3 fatty acids [Fish Oil] 1,000 mg PO DAILY 04/19/21 [History Confirmed 05/03/21] potassium 99 mg PO DAILY 04/19/21 [History Confirmed 05/03/21] vitamin M82-ptppd acid 1 tab PO DAILY 04/19/21 [History Confirmed 05/03/21] sumatriptan succinate 50 mg tablet 50 mg PO Q2H PRN #30 tab 04/22/21 [Rx Confirmed 05/03/21] PFSH Medical History (Updated 05/03/21 @ 13:42 by Roberta Guido) Ambulates with cane Anemia Anxiety Arthritis Atypical migraine Back pain Chronic back pain CPAP (continuous positive airway pressure) dependence Dementia Depression Fibromyalgia History of headache History of irregular heartbeat History of steroid therapy Hypertension Injury of back Injury of head and neck Migraine headache Osteoarthritis Post concussion syndrome Post-menopausal Sleep apnea Traumatic brain injury Wears dentures Wears glasses Surgical History History of arthroscopy of right shoulder History of breast augmentation History of total right knee replacement Social History household members: family Smoking Status: Never smoker alcohol intake: never substance use type: does not use HPI Left Knee Details: Parts of this documentation were recorded by a scribe, this documentation accurately reflects the service provided and the decisions made by me, Dr. Edwar Huffman, DO 05/03/21 9523. ROSALINDA MARROQUIN is a 56 year old F NEW patient here today for left knee pain. She states that she has had this left knee pain for about 4-5 years and the pain is progressively getting worse. She states that she was getting steroid injections in the knee every 3 months and they have not been very effective. She states that she has weakness of the left knee. She has difficulty getting into the shower. She states that she has posterior knee pain and this pain does radiate into her upper calf. She does also have some left sided low back pain and pain into the left leg as well but she is aware that she has lumbar DDD. Denies numbness, tingling or other associated symptoms. Denies any surgery of the left knee. She does have painful popping of the knee at times. She does feel that her left knee will give out on her. Her last steroid injection of the left knee was 09/[address] Marinelli in [place]. She states that injection was only effective for about 1 month. She has good extension and flexion at this time. She is using a cane to ambulate d/t the left knee pain. Right TKA in 2017 and denies any complications after the right TKA. She states that surgery was scheduled for the left knee to be replaced but this got canceled and She has been getting the steroid injections since. She states that she was on a pain pump after her right replacement and then thinks she took Percocet with the Methadone. She has been seeing Dr. Kamara for about 4 months. She has been taking Methadone for her back pain for over 5 years. She just had codal epidural steroid injections into her back with Dr. Kamara on 04/02/2021. She also has ablation therapy scheduled with Dr. Kamara. She states that she has seen several spinal surgeons and states they said she didnt require surgery. Is not a smoker and denies use of recreational drugs. Denies any hx of infections or ulcers in the toes. She has full set of dentures. Is not a diabetic. ROS Musc Denies numbness, Denies radiating pain into limb and Denies tingling Neuro No numbness and No tingling Ortho Exam General General: Yes no acute distress Neurologic: Yes alert and Yes oriented x3 Psychologic: Yes reasonable and appropriate Right Knee Patella Translation: 1 Left Knee Skin/Wound: No ecchymosis, No erythema and No swelling Homans Sign: No Knee ROM: No ROM-Extension -20 to 0 (lacking 15) and No ROM-Flexion 0-140 (125) Examination: Yes med jt line tenderness, No Lat jt line tenderness and No TTP Pes Anserine Stability: NML: Anterior Drawer, NML: Posterior Drawer, NML: Valgus 30 and NML: Varus 30 Apprehension with Lateral Translation: No Patella Translation: 1 Patella Grind: Yes KNEE: no joint effusion no hip pain with hip ROM sensation intact throughout the left lower leg Supplemental Info 05/03/2021 x-ray left knee advanced medial compartment arthrosis moderate patellofemoral spurring Coding Level of Care Code Off vis,new,level 3 Diagnoses Left knee pain M25.562 Primary osteoarthritis of left knee M17.12 Assessment and Plan Assessment and Plan (1) Left knee pain: Status: Acute Orders: Orders: Knee 4 or More Views Today Plan - Dr. Edwar Huffman, DO: Obtained X-rays of patient's left knee. Personally reviewed x-rays. There is no obvious fracture, dislocation, or lucency noted. Patient educated that she does have advanced arthritis of the left knee. Educated that her treatment options are do nothing or bracing or steroid injection or left TKA. Risks, benefits and alternatives of surgery reviewed including but not limited to bleeding, infection, nerve, artery and/or tissue damage, fracture, VTE, mechanical feel of the knee, continued pain, stiffness and expected post-operative course. Patient wishes to proceed with left TKA. 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 She did require rehabilitation after her last total knee however she is much more supported now at home with minimal stairs she states that she lives with her son and has a good support system at home. She will need to stop the Ibuprofen and Celebrex 7 days prior to surgery. She should stop the Turmeric as well. We will need medical clearance from her PCP Dr. Vasquez. Educated on the IOVERA procedure at this time and she wishes to proceed with this if it is approved by insurance. We discussed postoperative expectations and need for physical therapy, can take up to 2 years post op to fully recover. The most important part after surgery is PT and gaining the full extension and good ROM. She will be on a blood thinner for 2 weeks post op, and she will need to wear SEINA hose post operatively. Follow up for IOVERA treatment or sooner if pain, swelling, numbness or associated symptoms, or concerns develop. All questions answered. Patient in agreement of plan. (2) Primary osteoarthritis of left knee: Status: Acute 05/03/21 1413<Electronically signed by Edwar Huffman DO>Date Edwar Huffman DO I have re-examined the patient. There are no clinical changes since date of exam
[2021-06-08] MEDS: Cefazolin 2 GM in 0.9% Normal Saline 100 ML IV (07:42)
[2021-06-08] MEDS: dexAMETHasone 10 MG/ML Vial IV (07:50)
[2021-06-08] MEDS: Epinephrine (1 mg/ml) 1 MG/ML VIAL (09:20)
[2021-06-08] MEDS: Bupivacaine 0.5% PF 10 ML VIAL (09:20)
[2021-06-08] MEDS: Betamethasone/Betamethasone 30 MG/5 ML Vial (09:20)
[2021-06-08] MEDS: 0.9% Normal Saline (Pres. free 10 ML Vial (09:20)
--- NOTE | 2021-06-08 10:02 | PCM.OPRPT ---
Report of Operation Date of Procedure: 06/08/21 Description of Surgical Findings:: Preoperative diagnosis: Left knee DJD Postoperative diagnosis: Same Procedure: Left total knee arthroplasty CT guided Robotic Assisted Implant: Ramakrishna triathlon press fit, femoral component size 4, tibial baseplate size 5, asymmetric patella size 35, polyethylene X3 size 9 CS Anesthesia: Spinal with adductor canal block Tourniquet time: 14 minutes at 300 mmHg Complications: None Condition: Stable to PACU Estimated blood loss: 300 cc Indication for procedure: This is a 56-year-old female with long standing degenerative joint disease of the knee who has failed conservative treatment and wished to proceed with elective total knee arthroplasty. Risk benefits and alternatives were reviewed including; risk of bleeding, infection, nerve artery and tissue damage, continued pain, postoperative stiffness, venous thromboembolism, need for postoperative rehabilitation, mechanical feel to the knee, and expected postoperative course. The pre- operative CT and templating was performed with component sizing. Procedure: The patient was met in the preoperative holding area. The operative extremity was identified by both patient and physician and was marked. Patient was met by anesthesia. An adductor canal block was placed by anesthesia postoperatively the patient was brought back to the operating room on a wheeled cart and transferred to the operating table in the supine position. Anesthesia was started. A well-padded tourniquet was placed on the operative extremity. The patient was prepped and draped in the usual sterile fashion. A timeout was called to ensure the proper patient procedure and extremity were being contemplated. An esmarch was used to exsanguinate the extremity. The tourniquet was inflated. A 10 blade scalpel was used to make a midline incision down through the skin and subcutaneous tissue. Skin retractors placed. Bovie and aquamantis were used to perform meticulous hemostasis. full-thickness flaps were elevated medial and lateral along the joint capsule. A deep blade scalpel was used to perform a medial parapatellar arthrotomy. The knee was brought to full extension. A bovie was used to release the soft tissues off the most proximal aspect of the medial tibial plateau, a three-quarter inch curved osteotome was also used in this process. The infrapatellar fat pad was excised. The suprapatellar fat pad was excised partially anteriorolateraly and portion the anterioromedial pad was elevated from the femur. At this point our intra-articular femoral array was placed at a 45 degree angle proximal and posterior to the medial epicondyle. femoral checkpoint was placed at this time. Our tibial array was placed greater than 1 hands breath below the incision at a 20 degree angle stab incisions were made with a 15 blade scaple and pins were placed and attached to the tibial array , tibial checkpoint was placed in the proximal tibial metaphysis. Tourniquet was let down. At this point registration field were taken throughout the knee . Once the knee was registered we then tensioned the medial and lateral ligaments in extension and 90 degrees of flexion. We then used these numbers to adjust our components within parameters to balance the knee in both flexion and extension once this was done on our monitor we then proceeded with using the robotic arm to make our tibial plateau cut, anterior and posterior chamfer and distal femur cuts. we removed the cut fragments with the use of a bovie and lucero, we did use a lamina death clearance coordinator to insure we visualized and removed all posterior osteophytes and at this time also used the aquamantis on the posterior joint capsule. we then trialed and achieved the desired plan with a well-balanced knee. we used the green prob to agatha the corresponding tibial rotaion based on our CT tmeplate. Lug holes were drilled in the femur the tibia preparation was completed with the appropriate sized base plate pinned based on previous rotation agatha. An approprate sized fin punch was used on the tibia and 4 corner drill was used for the press fit component and the patella was prepared by first using a caliper to ensure sufficient bone stock and a patellar reamer to remove the desired amount of bone. lug holes drilled for an asymmetric poly. We then brought the knee through range of motion with excellent patellar tracking. We thoroughly irrigated the knee. Trial components were removed a posterior capsular injection was perfomed with our standard cocktail. In addition the aqua Mantis was also used to aid in hemostasis. Betadine rinse was allowed to sit and washed out completely. Components were press-fit into place. Aricept rinse was then used followed by several moree liters of irrigation after it was allowed to sit. The joint capsule was closed with #1 Ethibond raydvk-iz-zzcaj's followed by Vicryl in the subcutaneous tissues with alfa in the skin. Arrays and checkpoints were removed prior to closure all counts were correct stab incisions were closed with a staple standard dressing in the form of Mepilex AG for the main incision and a small meplix over the pin holes. Thigh-high SENIA hose applied over top of dressing. Patient tolerated the procedure well and was directed to PACU in stable condition . There were no intraoperative complications.
--- NOTE | 2021-06-08 10:33 | RAD_ITS ---
STUDY: X-RAY - LEFT KNEE REASON FOR EXAM: Postoperative evaluation of total left knee arthroplasty. TECHNIQUE: 2 view(s) of the knee. COMPARISON: Radiographs 05/03/2021. FINDINGS: There is a left total knee arthroplasty without evidence of complication. There is postoperative gas in the soft tissues and overlying skin alfa. RAD/Knee 1 or 2 Views IMPRESSION: Uncomplicated left total knee arthroplasty. Electronically Signed: Anurag Vazquez MD at 11:47 EST Tel , Service support ,
[2021-06-08] MEDS: oxyCODONE 5 MG Tablet PO (12:15)
[2021-06-08] MEDS: Cefazolin 1 GM/50 ML BAG IV ×2 (12:16→20:51)
--- NOTE | 2021-06-08 12:59 | DCINST_ITS ---
Discharge Instructions Dressing / Incision Additional Dressing/Incision Instructions:: Ice and elevate one week while not ambulating. Ambulation is encouraged. Weightbearing as tolerated. Use assistive devise for stability. Encourage FULL knee extension and flexion 1 time EVERY time you get up and down and MULTIPLE times per day. No showering 72 hours after surgery. Begin showering postop day #3. Remove the dressing prior to shower and gently wash with warm water and antibacterial soap then pat dry and place abdominal pad (or plain gauze) and SENIA hose over top. This is to be done daily. Do not submerge for 3 weeks. If not showering daily after the initial 72 hours then you must clean incision and change dressing daily. Do not allow animals near the incision area. Keep clean. Follow anticoagulation recommendations as prescribed. Do not take any NSAIDs while on blood thinner. Do not take any additional narcotic pain medication other than what was prescribed on your surgery day without discussing with physician. Narcotic medication can be addictive. Do not drink alcohol while taking narcotics. Star t physical therapy. If you are not currently scheduled for physical therapy or you are unsure of appointment time please call office [facility] to arrange. Call Dr. Huffman with any concerns. Follow Up Care Please Follow Up With: Edwar Huffman DO When: 2 weeks Test Results: Test results from this visit will be discussed in further detail at your follow-up appointment, if applicable. Discharge Plan Admission Admit Date/Time: 06/08/21 09:57 Attending Provider: Edwar Huffman Primary Care Provider: Ev Vasquez Discharge Orders/Prescriptions Prescriptions: New acetaminophen 500 mg Tablet 1,000 mg PO 4X/DAY PRN PRN (Reason: pain) Qty: 100 RF: 0 oxycodone 5 mg Tablet 5 - 10 mg PO Q4H PRN PRN (Reason: Pain Score 4-10) 7 Days Qty: 60 RF: 0 Eliquis 2.5 mg Tablet 2.5 mg PO BID Qty: 28 RF: 0 Continued duloxetine [Cymbalta] 30 mg capsule,delayed release(DR/EC) 30 mg PO BID Qty: 180 RF: 1 bupropion HCl [Wellbutrin XL] 150 mg tablet extended release 24 hr 150 mg PO DAILY Qty: 90 RF: 1 metoprolol tartrate 25 mg tablet 25 mg PO BID Qty: 180 RF: 1 celecoxib [Celebrex] 200 mg capsule 200 mg PO DAILY RF: 0 methadone 5 mg tablet 5 mg PO TID RF: 0 potassium 99 mg Tablet 99 mg PO DAILY RF: 0 magnesium 200 mg Tablet 200 mg PO DAILY RF: 0 havqjmjbmgwq-zzzbudvo-sbtzke Tablet 1 tab PO DAILY RF: 0 vitamin V50-cdyei acid 1-0.8 mg Tablet 1 tab PO DAILY RF: 0 valacyclovir 1 gram tablet 1,000 mg PO Q12H PRN (Reason: Cold Sores) RF: 0 sumatriptan succinate [Imitrex] 50 mg tablet 50 mg PO Q2H PRN (Reason: Headache) Qty: 30 RF: 0 (DME) Handicap Placard See Rx Instructions .Route .MEDSUPPLY Qty: 1 RF: 0 Discontinued Fish Oil Capsule 1,000 mg PO DAILY RF: 0 Referrals / Follow Up: Ev Vasquez MD [Primary Care Provider] -
[2021-06-08] MEDS: buPROPion (XL) 150 MG TABLET.XL PO (13:50)
[2021-06-08] MEDS: Multivitamins,Ther W-Minerals Tablet 1 TABLET PO (13:50)
--- NOTE | 2021-06-08 14:59 | SUR.PHASEII ---
PATIENT C/O LEFT KNEE PAIN 01/16, NEURO EXAM WNL, MEDS HAVE NOT BEEN EFFECTIVE. NOTIFIED DR HUSAIN WHO ORDERED ONE TIME DOSE IV DILAUDID.
[2021-06-08] MEDS: HYDROmorphone 0.5 MG/0.5 ML SYRINGE IV ×2 (15:26→22:18)
--- NOTE | 2021-06-08 16:26 | PCS.PANDOC ---
PANDEMIC DOCUMENTATION INITIATED: Date: 02/22/2021 Time: 190
[2021-06-08] MEDS: oxyCODONE 5 MG Tablet 15 MG PO (19:02)
[2021-06-08] MEDS: Senna/Docusate Sodium 1 Tablet 2 TABLET PO (22:15)
[2021-06-08] MEDS: DULoxetine Hcl 30 MG Capsule PO (22:15)
[2021-06-08] MEDS: Metoprolol Tartrate 25 MG Tablet PO (22:15)
[2021-06-08] MEDS: 0.9% NaCl Peripheral Flush Adult/Peds IV (22:18)
[2021-06-09] MEDS: oxyCODONE 5 MG Tablet 15 MG PO ×3 (00:06→11:35)
[2021-06-09] MEDS: HYDROmorphone 0.5 MG/0.5 ML SYRINGE IV (03:38)
[2021-06-09] MEDS: 0.9% NaCl Peripheral Flush Adult/Peds IV (03:39)
[2021-06-09] MEDS: Cefazolin 1 GM/50 ML BAG IV (03:43)
[2021-06-09 04:00] VITALS: BP 122/68; PULSE 77; RESP 16; TEMP 35.7; O2SAT 98
[2021-06-09 05:55] LABS: Hematocrit 25.7 % (37-47); Hemoglobin 8.4 g/dL (12.0-15.0); Mean Corp Hgb Conc 32.7 g/dL (32-36); Mean Corpuscular Hgb 28.9 pg (27.0-32.0); Mean Corpuscular Volume 88.3 fL (81-99); Mean Platelet Vol. 10.5 fl (6.2-12.0); Platelet Count 186 K/mm3 (150-450); RBC Distribution Width CV 13.2 % (11.6-14.6); RBC Distribution Width SD 42.7 fl (35.1-43.9); Red Blood Count 2.91 M/mm3 (4.2-5.4); White Blood Count 9.4 K/mm3 (4.4-11.0)
[2021-06-09] MEDS: Celecoxib 200 MG Capsule PO (06:04)
[2021-06-09] MEDS: Acetaminophen 500 MG Tablet 1000 MG PO ×2 (06:08→13:41)
[2021-06-09 06:12] LABS: Anion Gap 6 (5-15); BUN 14 mg/dL (7-18); BUN/Creat Ratio 19.5 RATIO (10-20); Calcium,Total 8.5 mg/dL (8.5-10.1); Chloride 103 mmol/L (98-107); Creatinine, Serum 0.72 mg/dL (0.55-1.02); EST Glomerular Filtration Rate 89 mL/min (>60); Est Glom Filt Rate - Afr Amer 107 mL/min (>60); Estimated Creatinine Clearance 73.55 ml/min; Glucose 190 mg/dL (74-106); Potassium 3.9 mmol/L (3.5-5.1); Sodium Level 138 mmol/L (136-145)
[2021-06-09 07:34] VITALS: PULSE 74
[2021-06-09] MEDS: Metoprolol Tartrate 25 MG Tablet PO (07:34)
[2021-06-09] MEDS: Multivitamins,Ther W-Minerals Tablet 1 TABLET PO (07:34)
[2021-06-09] MEDS: APIXABAN 2.5 MG TABLET PO (07:34)
[2021-06-09] MEDS: buPROPion (XL) 150 MG TABLET.XL PO (07:35)
[2021-06-09] MEDS: Senna/Docusate Sodium 1 Tablet 2 TABLET PO (07:35)
[2021-06-09] MEDS: Magnesium Chloride 64 MG Delay Rel.Tablet 128 MG PO (07:35)
[2021-06-09] MEDS: DULoxetine Hcl 30 MG Capsule PO (07:35)
[2021-06-09 08:00] VITALS: BP 112/52; PULSE 74; RESP 16; TEMP 36.6; O2SAT 98
[2021-06-09 08:20] VITALS: O2SAT 98
--- NOTE | 2021-06-09 09:31 | CASEMGMT ---
TC to [facility] Retail pharmacy, pt cost for eiliquis is $40. Pharmacist will apply eliquis card for zero cost.
--- NOTE | 2021-06-09 09:52 | CASEMGMT ---
ILIR WOLFE Assessment: Face to Face with pt for initial transition planning/care coordination assessment. ILIR WOLFE introduced self and role at [facility], pt voices understanding and consents to assessment. Pt is A/O x4 and answers all questions appropriately at this time. Pt sitting up in chair in no distress. Care providers, pharmacy, and demographics verified/updated. Admitting Dx: L Total Knee with SHANNEN PCP:Pedro Specialists: Sharon [employer] CLERK for , pain mgmt; [place], ortho Preferred Pharmacy: [facility] Retail Insurance: [facility] [employer] Prescription Benefit: yes LW/HPOA: Pt states she has a LW/DPOA. Her DPOA is her son Jairo Vargas. She is aware that it is not on file at [facility] and she may bring in to be scanned into the chart. LNOK: Jairo Vargas, son Living Arrangements: Pt lives with son and dil in a two story house with 2 steps to enter. Pt states son is going to build a rail at the steps. Pt only uses main level of the home. Pt states her dil washes her hair for her as she cannot d/t shoulder pain but she is able to bathe the rest of her body and dress herself. Pt denies concerns at home. Transportation: Pt son transports her to medical appts. Pt denies concerns with transportation. DME/HHC/SNF: Pt has 2 w/c, 5 canes and a 4ww. Pt has had HHC and SNF in [place]. Pt states she has her therapy set up at [facility] for tomorrow at 9am. She will use the hospital van for transportation and this is all set up. Pt states no concerns with going home at time of dc. Pt states no further concerns/needs. CM to follow. Advised pt to ask CM if any further question/concerns/needs arise, voices understanding. Pt Goal: Home with outpt therapy Plan: Home with outpt therapy already set up.
[2021-06-09 11:43] VITALS: BP 122/60; PULSE 66; RESP 16; TEMP 36.9; O2SAT 98
[2021-06-09 12:06] VITALS: O2SAT 98
--- NOTE | 2021-06-09 12:22 | DS.PCM_ITS ---
Providers Date of Admission: 06/08/21 Primary Care Physician: Dr. Ev Vasquez MD Reason For Visit: LT TOTAL KNEE W SHANNEN Diagnosis Discharge Diagnosis (1) S/P total knee arthroplasty: Status: Acute Code(s): Z96.659 - Presence of unspecified artificial knee joint (2) Other acute postprocedural pain: Status: Acute Code(s): G89.18 - Other acute postprocedural pain Medications at Discharge Home Medications bupropion HCl 150 mg 24 hr tablet, extended release 150 mg PO DAILY #90 tab 12/08/20 duloxetine 30 mg capsule,delayed release 30 mg PO BID #180 cap 12/08/20 metoprolol tartrate 25 mg tablet 25 mg PO BID #180 tab 12/08/20 celecoxib 200 mg capsule 200 mg PO DAILY 03/31/21 methadone 5 mg tablet 5 mg PO TID tab 03/31/21 magnesium 200 mg PO DAILY 04/19/21 cmmjtkgbpzon-umhmjjqx-mjoqzk 1 tab PO DAILY 04/19/21 potassium 99 mg PO DAILY 04/19/21 vitamin E82-yhbqn acid 1 tab PO DAILY 04/19/21 sumatriptan succinate 50 mg tablet 50 mg PO Q2H PRN #30 tab 04/22/21 valacyclovir 1,000 mg PO Q12H PRN 05/25/21 Handicap Placard #1 ea 06/02/21 acetaminophen 1,000 mg PO 4X/DAY PRN PRN #100 tab 06/08/21 apixaban [Eliquis] 2.5 mg PO BID #28 tab 06/08/21 oxycodone 5 - 10 mg PO Q4H PRN PRN 7 Days #60 tab 06/08/21 Hospital Course Operations total knee replacement Summary of Care Provided Hospital Course: Patient was seen in our office for osteoarthritis of the knee having failed conservative treatments therefore electing to proceed with left total knee arthroplasty. Prior to the procedure we did discuss anatomy, physiology, as well as pathophysiology of osteoarthritis. We discussed risks and possible benefits of the surgery including complication risks intraoperatively. After discussion patient again wanted to proceed with elective left total knee arthroplasty. Patient underwent successful total knee arthroplasty on Monday, May. Patient had no intraoperative complications and no evident postop issues. She was transferred to [facility]. Patient initially had a little difficulties controlling her pain at the same time today she is awake and alert and has no signs of distress. She does state there is mild pains at the same time she is smiling, carrying conversation, laughing and again has no signs of discomfort. Patient has ambulated already once today and is actually going to be doing more ambulation/physical therapy. She has done stairs and walking without major issues. She states that she feels she is doing great and is ready to go home for continued care. Physical Exam Const alert, oriented x3 and no apparent distress General Appearance: cooperative and comfortable; Negative for in distress Exam Limitations: no limitations Extremity Left Lower Extremity: knee joint inspection (Occlusive dressing remains in place and is completely dry without any seeping or noted blood. She has some minor bruising anteriorly (over Iovera treatment lines) and a little laterally at the same time is very mild.), palpation (Compartments are soft throughout the extrem ity. Minor tenderness around the anterior knee.), ROM (She does have a little bit of flexion contracture. Evident decreased range of motion postoperatively.), neurovascular exam (Normal sensation to light touch throughout the extremity. She has intact motor function of the ankle/foot/toes.), other and special tests (Negative Homans) Weight / BMI Weight Weight: 197 lb Body Mass Index (BMI) 33.7 ABG / Lab / Microbiology Data Result Diagrams: 06/09/21 05:00 06/09/21 05:00 Laboratory: Laboratory Results - last 24 hr 06/09/21 05:00: WBC 9.4, RBC 2.91 L, Hgb 8.4 L, Hct 25.7 L, MCV 88.3, MCH 28.9, MCHC 32.7, RDW Std Deviation 42.7, RDW Coeff of Jose 13.2, Plt Count 186, MPV 10.5 06/09/21 05:00: Sodium 138, Potassium 3.9, Chloride 103, Carbon Dioxide 29.0, Anion Gap 6, BUN 14, Creatinine 0.72, Estim Creat Clear Calc 73.55, Est GFR (MDRD) Af Amer 107, Est GFR (MDRD) Non-Af 89, BUN/Creatinine Ratio 19.5, Glucose 190 H, Calcium 8.5 Microbiology: Microbiology 06/01/21 10:44 Swab (Method) Nasal Screen MRSA/MSSA - Final D/C Instructions Discharge Diet: No restrictions Discharge Activity: May Shower (72 hours post op) and Use Walker Ice area for (Minutes): 20 Weight Bearing Status: Weight bearing as tolerated Keep extremity elevated above heart level: Operative Extremity (while at rest) Call your doctor if your incision/area has: Increased Pain/ Swelling Call your doctor if you observe: Fever of 101 or Higher, Numbness or Tingling, Shortness of breath and Chest pain Change Dressing in: 3 days (prior to shower on day 3 and then daily) Cleanse incision/area with: Soap & Water Additional Dressing/Incision Instructions: Ice and elevate one week while not ambulating. Perform ankle pumps while in bed or at rest. Ambulation is encouraged with wightbearing as tolerated using appropriate assistive devise for stability. Encourage FULL knee extension and flexion 1 time EVERY time you get up and down and MULTIPLE times per day. No showering 72 hours after surgery. Begin showering postop day #3. Remove the dressing prior to shower and gently wash with warm water and antibacterial soap then pat dry and place abdominal pad (or plain gauze) and SENIA hose over top. This is to be done daily. Do not submerge for 3 weeks. If not showering daily after the initial 72 hours then you must clean incision and change dressing daily. Do not allow animals near the incision area. Keep clean. Follow anticoagulation recommendations as pres cribed. Do not take any NSAIDs while on blood thinner. Do not take any additional narcotic pain medication other than what was prescribed on your surgery day without discussing with physician. Narcotic medication can be addictive. Do not drink alcohol while taking narcotics. Start physical therap y. If you are not currently scheduled for physical therapy or you are unsure of appointment time please call office [facility] to arrange. Call Dr. Huffman with any concerns. Please Follow Up With: Hero Walsh PA When: 2 weeks Meaningful Use Info Meaningful Use Diagnoses (Choose all that apply): None applicable Discharge Plan Admission Admit Date/Time: 06/08/21 09:57 Attending Provider: Edwar Huffman Primary Care Provider: Ev Vasquez Discharge Orders/Prescriptions Prescriptions: New acetaminophen 500 mg Tablet 1,000 mg PO 4X/DAY PRN PRN (Reason: pain) Qty: 100 RF: 0 oxycodone 5 mg Tablet 5 - 10 mg PO Q4H PRN PRN (Reason: Pain Score 4-10) 7 Days Qty: 60 RF: 0 Eliquis 2.5 mg Tablet 2.5 mg PO BID Qty: 28 RF: 0 Continued duloxetine [Cymbalta] 30 mg capsule,delayed release(DR/EC) 30 mg PO BID Qty: 180 RF: 1 bupropion HCl [Wellbutrin XL] 150 mg tablet extended release 24 hr 150 mg PO DAILY Qty: 90 RF: 1 metoprolol tartrate 25 mg tablet 25 mg PO BID Qty: 180 RF: 1 celecoxib [Celebrex] 200 mg capsule 200 mg PO DAILY RF: 0 methadone 5 mg tablet 5 mg PO TID RF: 0 potassium 99 mg Tablet 99 mg PO DAILY RF: 0 magnesium 200 mg Tablet 200 mg PO DAILY RF: 0 zkkmiwwskaok-tgikpmut-skvoxx Tablet 1 tab PO DAILY RF: 0 vitamin R20-ofsmq acid 1-0.8 mg Tablet 1 tab PO DAILY RF: 0 valacyclovir 1 gram tablet 1,000 mg PO Q12H PRN (Reason: Cold Sores) RF: 0 sumatriptan succinate [Imitrex] 50 mg tablet 50 mg PO Q2H PRN (Reason: Headache) Qty: 30 RF: 0 (DME) Handicap Placard See Rx Instructions .Route .MEDSUPPLY Qty: 1 RF: 0 Discontinued Fish Oil Capsule 1,000 mg PO DAILY RF: 0 Referrals / Follow Up: Ev Vasquez MD [Primary Care Provider] - Disposition Disposition (needs filled in before D/C Order can be placed): Home, Self Care
== END 2021-06-09 14:15 | disposition home or self-care (01) | DRG 470 ==
LOC: SDC 10:38 → MS3 06-09 09:06
PROVIDERS: Admitting Provider Orthopaedic Surgery; PCP Internal Medicine; Referring Provider Orthopaedic Surgery; Visit Provider Orthopaedic Surgery
PROC: 0SRD0JZ Replacement of Left Knee Joint with Synthetic Substitute, Open Approach (ICD-10-PCS; CPT 27447; principal; 2021-06-08 07:00)
DX: M17.12 Unilateral primary osteoarthritis, left knee (principal); F03.90 Unspecified dementia, unspecified severity, without behavioral disturbance, psychotic disturbance, mood disturbance, and anxiety; I10 Essential (primary) hypertension; F41.9 Anxiety disorder, unspecified; F32.A Depression, unspecified; M79.7 Fibromyalgia; G43.909 Migraine, unspecified, not intractable, without status migrainosus; Z79.899 Other long term (current) drug therapy
CPT/HCPCS: 36415; 73560; 80048; 82962; 82985; 83735; 85027; 85610; 85730; 87081; 87635; 88305; 88311; 93005; 97110; 97116; 97162; 97166; 97530; 97535; 99251; C1776; C9803; J7120; U0005; A4216; G0463; J0702; J2405; J3490; U0003

== ENCOUNTER 2021-07-14 14:00 | Outpatient (RCR) | payer OTHER, SELFPAY ==
--- NOTE | 2021-06-10 10:26 | HP.PTEVAL ---
Patient's Visit Information ROSALINDA MARROQUIN is a 56 year old F referred to Physical Therapy by Dr. Edwar Huffman DO with a diagnosis of Left TKR 06/08. Date of Evaluation: 06/10/21 Physical Therapist: Radha Toure DPT - Visit Plan Frequency: 3x /Week Duration: 4 Weeks Plan: TKR 06/08/21- Focus on LE ROM, strength, flex and muscular endurance with functional mobility - Subjective Left TKR by Dr. Shah 06/08/2021. Stayed overnight in the hospital and went home yesterday. Patient does not drive- has help from family with bathing and cooking. Prior to surgery she was only able to walk 10 feet due to pain in the knee and back. She had a right TKR ([place]) 5 years ago. Lives in a three story home but only goes to the basement but not very often- but she can go outside and walk around to avoid stairs. She has 2-4 steps to enter/exit with rails. She has a lot of family help- she is very depending on them to help with ADL's- lives with family. All on one level once she is inside. Normally pretty sedentary. Worst: 7-8/10 Agg: movement. Eases: ice packs and rubbing it. Best: 5/10. Exercises given by the hospital- report compliance. Most of the pain is lateral and posterior- started having medial pain today. Describes the pain as sharp and stabbing. Sleep: hard to get comfortable and disturbed. Work: does not work. Always uses an AD- cane inside house- w/c or walker in community. PMHx/Meds: no change since she was in the hospital. - Objective Posture: FH, RS- can correct but does not maintain. Gait: antalgic- decreased stance on the left LE with rollerator- decreased extension in knee. HR/TR: able with UE A SLS: weight shift but unable to SLS. Stairs: asc./desc non recip with bilateral HR. ROM: Knee: Flexion: 95 degrees Extn: -10 degrees. Strength: Core: fair minus, Hip: SLR: unable without max A, quad set visible- Knee: 12.1 Extn: 2.3. Ankle: 5/5. WOMAC: 21.8. Study: [facility] - Balance/Special Test Scores WOMAC Total Score: 75 WOMAC Percentatge: 21.8800 - Goals Goal 1:: Patient will be I with HEP and progression Goal Time Frame: 4-6 Weeks Goal 2:: Patient will ambulate >300 feet with a normalized gait pattern and LRD Goal Time Frame: 4-6 Weeks Goal 3:: Patient will demo 0-120 degrees of ROM Goal Time Frame: 4-6 Weeks Goal 4:: Patient will asc/desc 8 stairs recip with 1 HR and LRD Goal Time Frame: 4-6 Weeks Goal 5:: Patient will report 80% improvement with functional mobility - Rehabilitation Potential Physical Therapy Diagnosis: Patient presents with hypomobility- she has decreased ROM, strength, flex and muscular endurance s/p left TKR leading to abnormal gait and inability to perform I ADL's. Rehabilitation Potential: Fair - Anticipated Interventions Patient/Client Instruction: Educate patient on: Benefits of Fitness Program Therapeutic Exercise to Include: Strength training, Endurance training, Balance training, Coordination, Agility training, Body mechanics, Postural training, Flexibilty training, Gait and locomotor training, Neuromotor development, Passive ROM, Active ROM, Dynamic Lumbar Stabilization For the Purpose of:: To improve muscle performance and motor function Functional Training to Include: ADL Training, Gait training TENS: Yes Cryotherapy (ice pack, ice massage): Yes Thermo therapy (hot pack): Yes Ultrasound (thermal/non thermal): No Thank you for the opportunity to evaluate your patient. For Medicare and Medicare HMO plans, please review the plan of care and approve it. It will need to be FAXED BACK to us at [phone] for Medicare purposes. For Medicare only, by signing this I certify the plan of care. Please let me know if there are questions or concerns regarding this plan of care. Physician Signature: Date:
--- NOTE | 2021-07-14 14:41 | HP.PTEVAL ---
Patient's Visit Information ROSALINDA MARROQUIN is a 56 year old F referred to Physical Therapy by Dr. Edwar Huffman DO with a diagnosis of Left TKR 06/08. Date of Evaluation: 06/10/21 Physical Therapist: Radha Toure DPT - Visit Plan Frequency: 3x /Week Duration: 4 Weeks Plan: Discharge to [facility]. TKR 06/08/21- Focus on LE ROM, strength, flex and muscular endurance with functional mobility - Subjective Left TKR by Dr. Shah 06/08/2021. Stayed overnight in the hospital and went home yesterday. Patient does not drive- has help from family with bathing and cooking. Prior to surgery she was only able to walk 10 feet due to pain in the knee and back. She had a right TKR ([place]) 5 years ago. Lives in a three story home but only goes to the basement but not very often- but she can go outside and walk around to avoid stairs. She has 2-4 steps to enter/exit with rails. She has a lot of family help- she is very depending on them to help with ADL's- lives with family. All on one level once she is inside. Normally pretty sedentary. Worst: 7-8/10 Agg: movement. Eases: ice packs and rubbing it. Best: 5/10. Exercises given by the hospital- report compliance. Most of the pain is lateral and posterior- started having medial pain today. Describes the pain as sharp and stabbing. Sleep: hard to get comfortable and disturbed. Work: does not work. Always uses an AD- cane inside house- w/c or walker in community. PMHx/Meds: no change since she was in the hospital. - Pain Left Knee Pain Intensity (Out of 10): 7 Comment: no pain meds - Objective Posture: FH, RS- can correct but does not maintain. Gait: antalgic- decreased stance on the left LE with rollerator- decreased extension in knee. HR/TR: able with UE A SLS: weight shift but unable to SLS. Stairs: asc./desc non recip with bilateral HR. ROM: Knee: Flexion: 95 degrees Extn: -10 degrees. Strength: Core: fair minus, Hip: SLR: unable without max A, quad set visible- Knee: 12.1 Extn: 2.3. Ankle: 5/5. WOMAC: 21.8. Study: [facility] - Balance/Special Test Scores Lower Extremity Functional Score: 41 TUG Test Time Seconds: 12.2 WOMAC Total Score: 20 WOMAC Percentatge: 79.1700 - Goals Goal 1:: Patient will be I with HEP and progression Goal Time Frame: 4-6 Weeks Goal 2:: Patient will ambulate >300 feet with a normalized gait pattern and LRD Goal Time Frame: 4-6 Weeks Goal 3:: Patient will demo 0-120 degrees of ROM Goal Time Frame: 4-6 Weeks Goal 4:: Patient will asc/desc 8 stairs recip with 1 HR and LRD Goal Time Frame: 4-6 Weeks Goal 5:: Patient will report 80% improvement with functional mobility - Rehabilitation Potential Physical Therapy Diagnosis: Patient presents with hypomobility- she has decreased ROM, strength, flex and muscular endurance s/p left TKR leading to abnormal gait and inability to perform I ADL's. Rehabilitation Potential: Fair - Anticipated Interventions Patient/Client Instruction: Educate patient on: Benefits of Fitness Program Therapeutic Exercise to Include: Strength training, Endurance training, Balance training, Coordination, Agility training, Body mechanics, Postural training, Flexibilty training, Gait and locomotor training, Neuromotor development, Passive ROM, Active ROM, Dynamic Lumbar Stabilization For the Purpose of:: To improve muscle performance and motor function Functional Training to Include: ADL Training, Gait training TENS: Yes Cryotherapy (ice pack, ice massage): Yes Thermo therapy (hot pack): Yes Ultrasound (thermal/non thermal): No Thank you for the opportunity to evaluate your patient. For Medicare and Medicare HMO plans, please review the plan of care and approve it. It will need to be FAXED BACK to us at [phone] for Medicare purposes. For Medicare only, by signing this I certify the plan of care. Please let me know if there are questions or concerns regarding this plan of care. Physician Signature: Date:
--- NOTE | 2021-07-14 14:41 | HP.PTDCSUM ---
It has been my pleasure to treat ROSALINDA MARROQUIN referred by Dr. Edwar Huffman DO, with the diagnosis of Left TKR 06/08 for a total of 11 visit(s). Discharge Date: Please see the following information for a summary of their discharge status. Subjective: Patient reports that her knee is a lot better. She has a mild pain in the posterior knee and feels its due to healing. She has been putting the CBD oil on and she feels that its helping. She plans to buy some CBD oil for her back. She is able to walk her dogs again. Left Knee Pain Intensity (Out of 10): 7 % Improvement: 92 Objective/Function: Posture: FH, RS- can correct but does not maintain. Gait: slightly antalgic- decreased extension. HR/TR: able with UE A SLS: 10 sec. Stairs: asc./desc recip with 1 HR. ROM: Knee: Flexion: 120 degrees Extn: -10 degrees. Strength: Core: fair minus, Hip: 4+/5 Knee: Flexion: 24 Extn: 36. Ankle: 5/5. WOMAC: 21.8. Goal 1:: Patient will be I with HEP and progression Goal Progress: Goal Met Goal 2:: Patient will ambulate >300 feet with a normalized gait pattern and LRD Goal Progress: Progressing Goal 3:: Patient will demo 0-120 degrees of ROM Goal Progress: Progressing Goal 4:: Patient will asc/desc 8 stairs recip with 1 HR and LRD Goal Progress: Goal Met Goal 5:: Patient will report 80% improvement with functional mobility Goal Progress: Goal Met Plan: Discharge to I HEP. TKR 06/08/21- Focus on LE ROM, strength, flex and muscular endurance with functional mobility If there are questions or concerns regarding this patient's physical therapy, please feel free to call me at [phone]. Thank you for the referral of this patient. Sincerely, Radha Toure, DPT Balance/Gait/Functional tests - Balance/Special Test Scores Lower Extremity Functional Score: 41 TUG Test Time Seconds: 12.2 Tug Test: <20 sec.=mostly independent WOMAC Total Score: 20 WOMAC Percentage: 79.1700
== END 2021-07-14 19:00 | disposition home or self-care (01) ==
LOC: PT 14:00
PROVIDERS: PCP Internal Medicine; Referring Provider Orthopaedic Surgery; Visit Provider Orthopaedic Surgery
DX: Z47.1 Aftercare following joint replacement surgery (principal); Z96.652 Presence of left artificial knee joint
CPT/HCPCS: 97110; 97162; 97164

== ENCOUNTER 2021-09-23 14:43 | Outpatient (CLI) | payer OTHER, SELFPAY ==
--- NOTE | 2021-09-23 14:45 | BI_ITS ---
MAMMOGRAPHY - BILATERAL SCREENING 3-D TOMOSYNTHESIS REASON FOR EXAM: Female, 56 years old. Breast cancer screeningh PERTINENT HISTORY: No significant family history. TECHNIQUE: 2-D mammograms and 3-D Tomosynthesis of the breast (s) were performed. CAD was performed. COMPARISON: None. FINDINGS: The breast composition is heterogeneously dense that can obscure small breast masses. Scattered benign calcifications are seen. No dense spiculated masses or suspicious microcalcifications are identified. No architectural distortion is identified. There is no skin thickening or retraction. Bilateral retroglandular silicone implants. There is irregular areas of increased density surrounding the implants worrisome for bilateral extracapsular rupture. BI/SCRN MAMM (CAD)W/GREG BILAT IMPRESSION: No mammographic signs of malignancy. Suspect bilateral implant rupture. Routine yearly mammograms recommended. ASSESSMENT CATEGORY: BIRADS Category 2: Benign. A letter regarding these results will be sent to the patient by the facility within 30 days. FOLLOW UP RECOMMENDATION: Yearly follow up mammogram recommended. (A) Approximately 10% of breast cancers are not detected by mammography. A normal mammogram should not delay biopsy of a clinically suspicious abnormality. Electronically Signed: Micky Gentile MD at 16:10 EDT ,
== END 2021-09-23 23:59 | disposition home or self-care (01) ==
LOC: OPBI 14:45
PROVIDERS: PCP Internal Medicine; Visit Provider Internal Medicine
DX: Z12.31 Encounter for screening mammogram for malignant neoplasm of breast (principal); Z98.82 Breast implant status
CPT/HCPCS: 77063; 77067

== ENCOUNTER 2021-10-27 14:30 | Outpatient (RCR) | payer OTHER, SELFPAY ==
--- NOTE | 2021-09-15 12:29 | HP.PTEVAL_ITS ---
Patient's Visit Information ROSALINDA MARROQUIN is a 56 year old F referred to Physical Therapy by Dr. Beau Arndt MD with a diagnosis of LUMBAR SPONYLOSIS, DDD AND RADICULOPATHY. FIBROMYALGIA.. Date of Evaluation: 09/15/21 Physical Therapist: Kami Bedolla PT, Cert MDT - Visit Plan Frequency: 2-3x /Week Duration: 4-6 Weeks Plan: EVAL ONLY APPROVED. CHECK APPROVAL AND DOCUMENT VISIT NUMBER APPROVED AND TIME FRAME. POSTURE CORRECTION/STRENGTHENING, INSTRUCTION IN APPROPRIATE BODY MECHANICS AND ACTIVITY MODIFICATIONS. DLS STARTING WITH A NEUTRAL SPINE PROGRESSING ROM TOLERATED. MARIA INES LE ROM, STRETCHING AND STRENGTHENING. HEP INSTRUCTION. - Subjective Work/Leisure: UNEMPLOYEED. 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 OTHER: CURRENTLY LIVES WITH SON. . Disability: YES - SINCE 2019 DUE TO HEAD INJURY (TBI). Present symptoms: LOW BACK PAIN. PATIENT REPORTS HER BACK PAIN IS DIFFERENT FROM HER FIBROMYALGIA PAIN AND SHE HAS PAIN ALL OVER FROM FIBROMYALGIA. Present since: CHRONIC. Pain Scale: WORST 9/10, LEAST 4/10. Currently: /10. Commenced as a result of: NO APPARENT REASON. Symptoms at onset: LOW BACK PAIN. Worse: WALKING, BEING UP RIGHT IN GENERAL, ANY TIME I MOVE, STANDING. Better: LYING DOWN, SITTING, BEING OFF FEET. Disturbed sleep: YES. Previous history/Previous treatment: NO BACK SURGERY. MASSAGE, CUPPING, ACCUPUNCTURE, ACCUPRESSURE, PAIN CLINIC IN [place] X 20 YEARS, A LOT OF MANDO'S, A LOT OF PAIN MEDICATION. NO CHIROPRACTOR. A LOT OF PHYSICAL THERAPY. PATIENT REPORTS THE ACCUPUNCTURE HAS HELPED SOMETIMES. Coughing/sneezing/straining: POSITIVE. Gait: STATES SHE USES A CANE FOR BALANCE BECAUSE SHE FALLS A LOT. NO RECENT INJURIES FROM FALLS SINCE FALL DOWN STEPS 2 YEARS AGO THAT RESULTED IN TBI. BOWEL OR BLADDER DYSFUNCTION: NO. Unexplained weight loss: NO. Imaging: INDICATION: LUMBAR PAIN. EXAMINATION/TECHNIQUE: X-RAY - XR Spine Lumbar Min 4 Views. COMPARISON: None. . FINDINGS: VERTEBRAE: Preserved vertebral body height. No fracture. 6 mm. anterolisthesis L4 on L5. 2 mm anterolisthesis L3 on L4. Preservation of. the normal lumbar lordosis. Moderate multilevel facet arthropathy. DISCS: Moderate multilevel degenerative disease and spondylosis. INCLUDED ABDOMEN: Vascular calcifications. Moderate amount retained stool. in the colon. RAD/L/S Spine Min 4 Views. IMPRESSION: . Grade 1 anterolisthesis L4 on L5 and L3 on L4. . Moderate multilevel degenerative disc disease and spondylosis. . Electronically Signed: Angel Hernadez MD. . PMH/Recent major surgery: TBI, HTN, FIBROMYALGIA, SPINE PAIN, DEMENTIA. RIGHT TKR ABOUT 5 YEARS AGO. L TKR MAY 2020. R ROTATOR CUFF REPAIR. H/O MARIA INES SHLD CORTISONE INJECTIONS. OTHER: RECENT PHYSICAL THERAPY HERE AT [facility] FOR HER L KNEE AND SHE REPORTS HER KNEE IS DOING BETTER NOW. - Objective Sitting/Standing Posture: POOR. Lordosis: MILDLY REDUCED. Lateral shift: NO. Relevant shift: N/A. Active Correction of posture: NE. Other Observations: THIS PATIENT AMBULATES INDEP'LY INTO PT WITH A STRAIGHT CANE, FAIR CADANCE AND NO LOB. SHE IS ABLE TO DEMO INDEP SIT TO STAND WITHOUT UE ASSIST BUT WITH DIFFICULTY. Motor deficit: MARIA INES LE STRENGTH IS GROSSLY 4/5 WITH MMT'ING EXCEPT ANKLES 5/5. Sensory deficit: MARIA INES LE LIGHT TOUCH SENSATION IS GROSSLY INTACT AND SYMMETRICAL EXCEPT MARIA INES KNEES WHICH PATIENT RELATES TO HER KNEE SURGERIES. DECREASED LIGHT TOUCH AREA IS LARGER IN RIGHT KNEE REGION THAN LEFT. ROM deficit: MARIA INES HIP FLEXOR, HS AND GASTROC SOLEUS TIGHTNESS. Dural Signs: NEGATIVE MARIA INES LE DURAL SIGNS. Lumbar mvmt loss: flex - NIL. ext - MOD. R SG - MOD. L SG - MOD. PATIENT REPORTS MILD INCREASE IN LBP WITH LUMBAR ROM TESTING ALL PLANES. Core strength: POOR. TREATMENT: NEUROMUSCULAR REEDUCATION - RETRAINING OF MVMT AND POSTURE FOR SITTING, LYING AND STANDING ACTIVITIES. - Balance/Special Test Scores Oswestry Low Back Score: 38 - Goals Goal 1:: DECREASE C/O LOW BACK PAIN Goal Time Frame: 4-6 Weeks Goal 2:: IMPROVE PERSONAL CARE, LIFTING, WALKING, STANDING, SLEEP, SOCIAL LIFE, TRAVEL AND WORK/HOMEMAKING FUNCTION Goal Time Frame: 4-6 Weeks Goal 3:: INSTRUCT IN PROPHYLAXIS Goal Time Frame: 4-6 Weeks - Anticipated Interventions Patient/Client Instruction: Educate patient on: Condition, Plan of Care, Risk Factors For the Purpose of:: To improve self management Therapeutic Exercise to Include: Strength training, Body mechanics, Postural training, Flexibilty training, Neuromotor development, In an aquatic setting, Active ROM, Dynamic Lumbar Stabilization For the Purpose of:: To decrease pain, To improve muscle performance and motor function, To increase tolerance to activity/condition/position, To improve ability of physical actions for home/community/work/leisure, To improve gait and locomotor functions Thank you for the opportunity to evaluate your patient. For Medicare and Medicare HMO plans, please review the plan of care and approve it. It will need to be FAXED BACK to us at [phone] for Medicare purposes. For Medicare only, by signing this I certify the plan of care. Please let me know if there are questions or concerns regarding this plan of care. Physician Signature: Date:
== END 2021-10-27 19:00 | disposition home or self-care (01) ==
LOC: PT 14:30
PROVIDERS: PCP Internal Medicine; Referring Provider Anesthesiology Pain Medicine; Visit Provider Anesthesiology Pain Medicine
DX: M47.817 Spondylosis without myelopathy or radiculopathy, lumbosacral region (principal); M51.37 Other intervertebral disc degeneration, lumbosacral region; M54.17 Radiculopathy, lumbosacral region; M54.50 Low back pain, unspecified; M79.7 Fibromyalgia
CPT/HCPCS: 97112; 97113; 97162

== ENCOUNTER → 2021-12-13 | Outpatient (CLI) | payer OTHER, SELFPAY ==
[2021-12-13 15:46] LABS: Amphetamine Urine VISTA NEGATIVE (<1000 ng/mL); Barbiturate Urine VISTA NEGATIVE (< 200 ng/mL); Benzodiazepine Urine VISTA NEGATIVE (< 200 ng/mL); Cocaine Urine VISTA NEGATIVE (< 300 ng/mL); Ecstacy Urine VISTA NEGATIVE (< 500 ng/mL); Methadone Urine VISTA NEGATIVE (< 300 ng/mL); PCP Urine VISTA NEGATIVE (< 25 ng/mL); THC Urine VISTA NEGATIVE (< 50 ng/mL); Vista UDS pH Range 7
== END | disposition home or self-care (01) ==
PROVIDERS: PCP Internal Medicine; Referring Provider Anesthesiology Pain Medicine; Visit Provider Anesthesiology Pain Medicine
DX: F11.20 Opioid dependence, uncomplicated (principal)
CPT/HCPCS: 80307

== ENCOUNTER → 2022-06-01 | Outpatient (CLI) | payer OTHER, SELFPAY ==
[2022-06-01 08:47] LABS: Absolute Lymphocyte Count 0.58 X10^3/uL (0.83-4.51); Absolute Neutrophil Count 2.2 X10^3/uL (2.0-7.7); Basophil# 0.02 X10^3/uL; Basophil% 0.6 % (0-1); Eosinophils% 6.1 % (0-5); Hematocrit 37.8 % (37-47); Lymphocyte # 0.58 X10^3/ul (0.83-4.51); Lymphocyte % 17.7 % (19-41); Mean Corp Hgb Conc 31.7 g/dL (32-36); Mean Corpuscular Hgb 27.1 pg (27.0-32.0); Mean Corpuscular Volume 85.5 fL (81-99); Mean Platelet Vol. 10.1 fl (6.2-12.0); Monocyte# 0.26 X10^3/uL; Monocyte% 7.9 % (0-10); NRBC Flagged by Analyzer 0 % (0-5); Neutrophil # 2.21 X10^3/uL (2.7-7.7); Neutrophil % 67.4 % (47-70); POSITIVE DIFFERENTIAL YES; Platelet Count 213 K/mm3 (150-450); RBC Distribution Width CV 13.7 % (11.6-14.6); RBC Distribution Width SD 42.8 fl (35.1-43.9); Red Blood Count 4.42 M/mm3 (4.2-5.4); White Blood Count 3.3 K/mm3 (4.4-11.0)
[2022-06-01 09:04] LABS: Differential Indicated SCAN CRITERIA MET
[2022-06-01 09:06] LABS: Hemoglobin A1c 5.4 % (3.8-5.6)
[2022-06-01 09:20] LABS: Follicle Stimulating Hormone 42.1 mIU/mL
[2022-06-01 09:27] LABS: AST(SGOT) 23 U/L (15-37); Alanine Aminotransfer ALT/SGPT 27 U/L (13-56); Albumin, Serum 3.5 g/dL (3.2-5.0); Alkaline Phosphatase 67 U/L (45-117); Anion Gap 3 (5-15); BUN 13 mg/dL (7-18); BUN/Creat Ratio 17.1 RATIO (10-20); Calcium,Total 8.7 mg/dL (8.5-10.1); Chloride 106 mmol/L (98-107); Cholesterol 275 mg/dL (200); Creatinine, Serum 0.76 mg/dL (0.55-1.02); EST Glomerular Filtration Rate 83 mL/min (>60); Est Glom Filt Rate - Afr Amer 100 mL/min (>60); Globulin 3.5 g/dL (2.2-4.2); Glucose 96 mg/dL (74-106); High Density Lipoprotein 74 mg/dL; Potassium 3.9 mmol/L (3.5-5.1); Sodium Level 140 mmol/L (136-145); Thyroid Stim Hormone (TSH) 0.69 uIU/mL (0.358-3.74); Triglycerides 131 mg/dL; Very Low Density Lipoprotein 26 mg/dL (5-40)
[2022-06-01 09:31] LABS: Differential Comment SCANNED
[2022-06-01 13:21] LABS: Pathologist Review Reviewed
[2022-06-08 12:08] LABS: Testosterone, Free 0.35 ng/dL (0.10-0.85); Testosterone, Total 23 ng/dL (4-50)
[2022-06-08 12:35] LABS: Testosterone, % Free 1.51 % (0.50-2.80)
== END | disposition home or self-care (01) ==
PROVIDERS: PCP Internal Medicine; Referring Provider Internal Medicine; Visit Provider Internal Medicine
DX: I10 Essential (primary) hypertension (principal); F32.A Depression, unspecified; D64.9 Anemia, unspecified; M54.9 Dorsalgia, unspecified; G89.29 Other chronic pain; M19.90 Unspecified osteoarthritis, unspecified site; R23.2 Flushing
CPT/HCPCS: 36415; 80053; 80061; 82306; 83001; 83002; 83036; 84402; 84403; 84443; 85025